=== PATIENT | female | born 1945 | race Caucasian/White ===

== ENCOUNTER → 2016-10-30 | Outpatient (CLI) | payer MEDICARE, BC ==
[2016-10-30 10:51] LABS: Basophils # (A) 0.1 k/uL (0-0.2); Basophils % (A) 1 %; CHCM 33.2; Eosinophils # (A) 0.1 k/uL (0-0.7); Eosinophils % (A) 2 %; HCT 50.2 % (34.0-46.0); HDW 2.66; Luc # (Auto) 0.11; Luc % (Auto) 2; Lymphocytes # (A) 1.9 k/uL (1.0-4.8); Lymphocytes % (A) 31 %; MCH 27.9 pg (25.0-35.0); MCHC 31.8 g/dL (31.0-37.0); MCV 87.9 fL (80.0-100.0); Mean Platelet Volume 8.9; Monocytes # (A) 0.4 k/uL (0-1.0); Monocytes % (A) 7 %; Neutrophils # (A) 3.7 k/uL (1.3-7.7); Neutrophils % (A) 58 %; RBC 5.71 m/uL (3.80-5.40); WBC 6.3 k/uL (3.8-10.6); WBC (Perox) 6.32
[2016-10-30 11:13] LABS: ALT 42 U/L (9-52); AST 20 U/L (14-36); Alkaline Phosphatase 79 U/L (38-126); Anion Gap 11 mmol/L; Blood Urea Nitrogen 20 mg/dL (7-17); Carbon Dioxide 26 mmol/L (22-30); Chloride 105 mmol/L (98-107); Cholesterol 165 mg/dL (<200); Glucose 152 mg/dL (74-99); HDL Cholesterol 65 mg/dL (40-60); Non-African American GFR(MDRD) >60 (>60 ml/min/1.73 sqM); Sodium 142 mmol/L (137-145); Total Bilirubin 1.2 mg/dL (0.2-1.3); Triglycerides 137 mg/dL (<150)
[2016-10-30 11:43] LABS: Hemoglobin A1C 6.4 % (4.2-6.1)
== END | disposition home or self-care (01) ==
LOC: LABWHC1 10:29
PROVIDERS: ATTEND Family Medicine
DX: E11.40 Type 2 diabetes mellitus with diabetic neuropathy, unspecified (principal); E78.5 Hyperlipidemia, unspecified; E03.9 Hypothyroidism, unspecified; Z85.850 Personal history of malignant neoplasm of thyroid
CPT/HCPCS: 36415; 80053; 80061; 83036; 84439; 84443; 84481; 85025; 86800

== ENCOUNTER → 2016-12-18 | Outpatient (CLI) | payer MEDICARE, BC ==
--- NOTE | 2016-12-18 11:40 | BD ---
EXAMINATION TYPE: MG DEXA axial skeleton. DATE OF EXAM: 12/18/2016 11:01 AM CLINICAL HISTORY: Height: 60 inches Weight: 194 FRAX RISK QUESTIONS: Alcohol (3 or more units per day): no Family History (Parent hip fracture): yes, mother Glucocorticoids (More than 3mos): no (Ex: prednisone, prednisolone, methylprednisolone, dexamethasone, and hydrocortisone). History of Fracture in Adulthood: no Secondary Osteoporosis: 1. Type 1 Diabetes: no 2. Hyperthyroidism: no 3. Menopause before 45: no 4. Malnutrition: no 5. Chronic liver disease: no Rheumatoid Arthritis: no Current Tobacco Use: no RISK FACTORS HISTORY OF: Family History of Osteoporosis: mother, maternal aunt Drink Alcohol: occasionally, occasionally Active: yes Diet low in dairy products/other sources of calcium: no Postmenopausal woman: yes Take estrogen and/or progesterone medications: no Lost more than 2 inches in height since high school: no, but almost 1 1/2 inches Frequent falls: no Poor Health: no Hyperthyroidism: no Hyperparathyroidism: no Adrenal Insufficiency: no MEDICATIONS: Prednisone or other steroids: no Thyroid Medications: yes Which medication: Synthroid How Long: since 1998 Osteoporosis Medications: no Additional Medications: blood pressure meds, cholesterol , multivitamin & Vitamin D; diabetes pills Additional History: Thyroid CA:thyroid removed; 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 Bone mineral density as measured about the Lumbar spine is: ----- L1-L4(G/cm2): 1.057 T Score Values are as follows: ----- L2: -0.8 ----- L3: -0.7 ----- L4: -1.0 ----- L1-L4: -1.0 Bone mineral density has: Decreased -0.5% since study of: 07/09/2013 Bone mineral density about the R hip (g/cm2): 0.790 Bone mineral density about the L hip (g/cm2): 0.811 T Score values are as follows: -----R Neck: -1.8 -----L Neck: -1.6 -----R Intertrochanter: -1.3 -----L Intertrochanter: -1.2 Bone mineral density has: Decreased -5.3% since study of: 07/09/2013 IMPRESSION: Normal (Values between +1 and -1 indicate normal bone mass) Lumbar Spine Osteopenia (T Score between -2.5 and -1 as noted by T score values Bilateral Hips There is slightly increased risk of fracture and the patient may be considered for treatment. Re-Screen 1-2 years. NOTE: T-SCORE=SD OF THE YOUNG ADULT MEAN.
--- NOTE | 2016-12-19 10:43 | MM ---
Reason for exam: screening (asymptomatic). Last mammogram was performed 1 year and 5 months ago. History: Patient is postmenopausal and history of other cancer. Taking unspecified hormones for 8 years beginning at age 53. Physical Findings: A clinical breast exam by your physician is recommended on an annual basis and results should be correlated with mammographic findings. MG 3D Screening Mammo W/Cad Bilateral CC and MLO view(s) were taken. Prior study comparison: July 19, 2015, bilateral MG screening mammo w CAD. July 22, 2014, bilateral MG screening mammo w CAD. July 09, 2013, bilateral digital screening mammo w/CAD. The breast tissue is heterogeneously dense. This may lower the sensitivity of mammography. Finding: There are typically benign dystrophic, round calcifications in both breasts. There is a chronic nodularity bilaterally. There is no discrete abnormality. ASSESSMENT: Benign, BI-RAD 2 RECOMMENDATION: Routine screening mammogram of both breasts in 1 year.
== END ==
LOC: RADMAMWWP 10:11
PROVIDERS: ATTEND Family Medicine
DX: Z12.31 Encounter for screening mammogram for malignant neoplasm of breast (principal); Z78.0 Asymptomatic menopausal state
CPT/HCPCS: 77080; 77063; G0202

== ENCOUNTER → 2017-02-13 | Outpatient (CLI) | payer MEDICARE, BC ==
[2017-02-13 09:39] LABS: ALT 32 U/L (9-52); AST 19 U/L (14-36); Alkaline Phosphatase 77 U/L (38-126); Anion Gap 10 mmol/L; Blood Urea Nitrogen 25 mg/dL (7-17); Calcium 9.7 mg/dL (8.4-10.2); Carbon Dioxide 27 mmol/L (22-30); Chloride 105 mmol/L (98-107); Glucose 141 mg/dL (74-99); Non-African American GFR(MDRD) >60 (>60 ml/min/1.73 sqM); Potassium 4.6 mmol/L (3.5-5.1); Sodium 142 mmol/L (137-145); Total Protein 7.3 g/dL (6.3-8.2)
[2017-02-13 09:55] LABS: Basophils % (A) 1 %; CH 29.4; CHCM 33.9; Eosinophils # (A) 0.1 k/uL (0-0.7); Eosinophils % (A) 2 %; HCT 48.5 % (34.0-46.0); HDW 2.73; HGB 16.2 gm/dL (11.4-16.0); Luc # (Auto) 0.14; Luc % (Auto) 2; Lymphocytes # (A) 1.9 k/uL (1.0-4.8); Lymphocytes % (A) 27 %; Mean Platelet Volume 8.6; Monocytes # (A) 0.4 k/uL (0-1.0); Monocytes % (A) 6 %; Neutrophils # (A) 4.3 k/uL (1.3-7.7); Neutrophils % (A) 62 %; RBC 5.57 m/uL (3.80-5.40); RDW 12.9 % (11.5-15.5)
[2017-02-13 09:57] LABS: MCHC 33.4 g/dL (31.0-37.0)
[2017-02-13 10:25] LABS: Hepatitis C Virus IgG Index 0.01
[2017-02-13 10:30] LABS: Hepatitis C Virus IgG Ab Negative (Negative)
== END | disposition home or self-care (01) ==
LOC: LABWHC1 08:49
PROVIDERS: ATTEND Family Medicine
DX: E78.5 Hyperlipidemia, unspecified (principal); E11.40 Type 2 diabetes mellitus with diabetic neuropathy, unspecified; E03.9 Hypothyroidism, unspecified; E55.9 Vitamin D deficiency, unspecified; Z20.9 Contact with and (suspected) exposure to unspecified communicable disease
CPT/HCPCS: 36415; 80053; 82306; 84439; 84443; 84481; 85025; 86803

== ENCOUNTER 2017-06-05 00:05 | Emergency (ER) | payer MEDICARE, BC ==
[2017-06-05 00:11] VITALS: RESP 18
[2017-06-05] MEDS ORDERED: MORPHINE SULFATE 4 MG/ML SYRINGE IV STA (00:31)
[2017-06-05] MEDS ORDERED: SODIUM CHLORIDE 0.9% 1,000 ML IV STA (00:31)
[2017-06-05] MEDS ORDERED: ONDANSETRON 4 MG/2 ML VIAL IVP STA (00:31)
[2017-06-05] MEDS ORDERED: FAMOTIDINE 20 MG/2 ML VIAL IV STA (00:32)
--- NOTE | 2017-06-05 00:35 | ED ---
General Adult HPI - General Source: patient, family, RN notes reviewed Mode of arrival: ambulatory Limitations: no limitations <Mitch Brand - Last Filed: 06/05/17 00:33> <Alberto De Leon - Last Filed: 06/05/17 02:12> - General Chief complaint: Abdominal Pain Stated complaint: abd pain, vomiting Time Seen by Provider: 06/05/17 00:26 - History of Present Illness Initial comments: Patient is a pleasant 71-year-old female presenting to the emergency department complaining of abdominal discomfort. Patient did bleed a pot roast with gravy which is not something she normally eats. Patient states following this she started having upper abdominal discomfort. Patient has had nausea and vomiting that just started an hour ago. No constipation or diarrhea. No dysuria or hematuria. No history of similar symptoms previously. No radiation of pain ( Mitch Brand) - Related Data Home Medications Medication Instructions Recorded Confirmed ALPRAZolam [Xanax] 0.5 mg PO TID PRN 05/22/14 06/05/17 Atorvastatin [Lipitor] 20 mg PO DAILY 05/22/14 06/05/17 Glimepiride [Amaryl] 2 mg PO [id number] 05/22/14 06/05/17 Levothyroxine Sodium [Synthroid] 175 mcg PO DAILY 05/22/14 06/05/17 Liothyronine Sodium [Cytomel] 5 mcg PO DAILY 05/22/14 06/05/17 Lisinopril [Zestril] 20 mg PO BID 05/22/14 06/05/17 Ranitidine HCl [Zantac] 150 mg PO BID PRN 05/22/14 06/05/17 amLODIPine BESYLATE [Norvasc] 5 mg PO DAILY 05/22/14 06/05/17 metFORMIN HCL [Glucophage] 500 mg PO BID 05/22/14 06/05/17 Allergies Allergy/AdvReac Type Severity Reaction Status Date / Time No Known Allergies Allergy Verified 06/05/17 00:11 Review of Systems ROS Other: All systems not noted in ROS Statement are negative. Constitutional: Denies: fever Eyes: Denies: eye pain ENT: Denies: ear pain Respiratory: Denies: cough Cardiovascular: Denies: chest pain Endocrine: Denies: fatigue Gastrointestinal: Reports: abdominal pain, nausea, vomiting. Denies: diarrhea, constipation Genitourinary: Denies: dysuria Musculoskeletal: Denies: back pain Skin: Denies: rash Neurological: Denies: weakness <Mitch Brand - Last Filed: 06/05/17 00:33> ROS Other: All systems not noted in ROS Statement are negative. <Alberto De Leon - Last Filed: 06/05/17 02:12> ROS Statement: Those systems with pertinent positive or pertinent negative responses have been documented in the HPI. Past Medical History Past Medical History: Blood Disorder, Cancer, Diabetes Mellitus, GERD/Reflux, Hypertension, Pneumonia Additional Past Medical History / Comment(s): Thyroid cancer 1998, radioactive pill. Does have heart 'flutters', unknown if atrial. History of Any Multi-Drug Resistant Organisms: None Reported Past Surgical History: Section, Orthopedic Surgery, Tubal Ligation Additional Past Surgical History / Comment(s): Thyroidectomy for CA 1998; Lt knee arthroscopy, bilateral carpal tunnel procedures. Past Anesthesia/Blood Transfusion Reactions: No Reported Reaction Past Psychological History: No Psychological Hx Reported Smoking Status: Never smoker Past Alcohol Use History: None Reported Past Drug Use History: None Reported <Mitch Brand - Last Filed: 06/05/17 00:33> General Exam Limitations: no limitations General appearance: alert, in no apparent distress Head exam: Present: atraumatic Eye exam: Present: normal appearance, PERRL ENT exam: Present: normal oropharynx Neck exam: Present: normal inspection Respiratory exam: Present: normal lung sounds bilaterally Cardiovascular Exam: Present: regular rate, normal rhythm Expanded Peripheral pulses: 2+: Radial (R), Radial (L), Dorsalis Pedis (R), Dorsalis Pedis (L) GI/Abdominal exam: Present: soft, tenderness (Moderate right upper quadrant tenderness to palpation, mild epigastric and left upper quadrant tenderness), normal bowel sounds. Absent: distended, guarding, rebound, rigid, pulsatile mass Extremities exam: Present: normal inspection. Absent: pedal edema, calf tenderness Neurological exam: Present: alert Psychiatric exam: Present: normal affect, normal mood Skin exam: Present: normal color <Mitch Brand Last Filed: 06/05/17 00:33> Medical Decision Making <Mitch Brand Last Filed: 06/05/17 00:33> - Lab Data Result diagrams: 06/05/17 00:43 06/05/17 00:43 <Alberto De Leon - Last Filed: 06/05/17 02:12> - Medical Decision Making 71-year-old female with abdominal pain. Patient was signed out from Dr. Brand awaiting ultrasound and laboratory studies. I did reevaluate the patient at the time sign out. She was comfortable, no nausea vomiting while in the emergency department. She did report severe upper abdominal pain with several episodes of vomiting. Pain is currently resolved. Laboratory studies including CBC, CMP, cardiac enzymes show only mild elevation white count which is likely reactive. Abdominal x-ray shows no free air, no signs of obstruction. Ultrasound of the gallbladder is negative for cholelithiasis, or cholecystitis. I did discuss these results with the patient. She is completely asymptomatic. Vital signs are stable. She'll be discharged home with instructions to return with worsening abdominal pain or vomiting. Follow-up with primary care physician. (Alberto De Leon) - Lab Data Lab Results 06/05/17 06/05/17 06/05/17 Range/Units 00:43 00:43 00:43 WBC 13.4 H (3.8-10.6) k/uL RBC 5.42 H (3.80-5.40) m/uL Hgb 15.4 (11.4-16.0) gm/dL Hct 46.7 H (34.0-46.0) % MCV 86.1 (80.0-100.0) fL MCH 28.4 (25.0-35.0) pg MCHC 33.0 (31.0-37.0) g/dL RDW 13.8 (11.5-15.5) % Plt Count 185 (150-450) k/uL Neutrophils % 83 % Lymphocytes % 11 % Monocytes % 4 % Eosinophils % 1 % Basophils % 1 % Neutrophils # 11.1 H (1.3-7.7) k/uL Lymphocytes # 1.4 (1.0-4.8) k/uL Monocytes # 0.6 (0-1.0) k/uL Eosinophils # 0.1 (0-0.7) k/uL Basophils # 0.1 (0-0.2) k/uL PT (9.0-12.0) sec INR (<1.2) APTT (22.0-30.0) sec Sodium 140 (137-145) mmol/L Potassium 4.0 (3.5-5.1) mmol/L Chloride 104 (98-107) mmol/L Carbon Dioxide 25 (22-30) mmol/L Anion Gap 11 mmol/L BUN 29 H (7-17) mg/dL Creatinine 1.00 (0.52-1.04) mg/dL Est GFR (MDRD) Af Amer >60 (>60 ml/min/1.73 sqM) Est GFR (MDRD) Non-Af 55 (>60 ml/min/1.73 sqM) Glucose 127 H (74-99) mg/dL Calcium 9.8 (8.4-10.2) mg/dL Total Bilirubin 1.1 (0.2-1.3) mg/dL AST 21 (14-36) U/L ALT 42 (9-52) U/L Alkaline Phosphatase 98 (38-126) U/L Total Creatine Kinase 41 (30-135) U/L CK-MB (CK-2) 0.3 (0.0-2.4) ng/mL CK-MB (CK-2) Rel Index 0.7 Troponin I <0.012 (0.000-0.034) ng/mL Total Protein 6.6 (6.3-8.2) g/dL Albumin 4.1 (3.5-5.0) g/dL Amylase 41 (30-110) U/L Lipase 92 (23-300) U/L 06/05/17 Range/Units 00:43 WBC (3.8-10.6) k/uL RBC (3.80-5.40) m/uL Hgb (11.4-16.0) gm/dL Hct (34.0-46.0) % MCV (80.0-100.0) fL MCH (25.0-35.0) pg MCHC (31.0-37.0) g/dL RDW (11.5-15.5) % Plt Count (150-450) k/uL Neutrophils % % Lymphocytes % % Monocytes % % Eosinophils % % Basophils % % Neutrophils # (1.3-7.7) k/uL Lymphocytes # (1.0-4.8) k/uL Monocytes # (0-1.0) k/uL Eosinophils # (0-0.7) k/uL Basophils # (0-0.2) k/uL PT 10.8 (9.0-12.0) sec INR 1.1 (<1.2) APTT 22.7 (22.0-30.0) sec Sodium (137-145) mmol/L Potassium (3.5-5.1) mmol/L Chloride (98-107) mmol/L Carbon Dioxide (22-30) mmol/L Anion Gap mmol/L BUN (7-17) mg/dL Creatinine (0.52-1.04) mg/dL Est GFR (MDRD) Af Amer (>60 ml/min/1.73 sqM) Est GFR (MDRD) Non-Af (>60 ml/min/1.73 sqM) Glucose (74-99) mg/dL Calcium (8.4-10.2) mg/dL Total Bilirubin (0.2-1.3) mg/dL AST (14-36) U/L ALT (9-52) U/L Alkaline Phosphatase (38-126) U/L Total Creatine Kinase (30-135) U/L CK-MB (CK-2) (0.0-2.4) ng/mL CK-MB (CK-2) Rel Index Troponin I (0.000-0.034) ng/mL Total Protein (6.3-8.2) g/dL Albumin (3.5-5.0) g/dL Amylase (30-110) U/L Lipase (23-300) U/L Disposition <Mitch Brand - Last Filed: 06/05/17 00:33> Time of Disposition: 02:12 <Alberto De Leon - Last Filed: 06/05/17 02:12> Clinical Impression: Abdominal pain Disposition: HOME SELF-CARE Condition: Good Instructions: Abdominal Pain (ED) Referrals: Marlo Lewis MD [Primary Care Provider] - 1-2 days
[2017-06-05 00:50] LABS: Basophils # (A) 0.1 k/uL (0-0.2); Basophils % (A) 1 %; CH 29.8; CHCM 34.7; Eosinophils # (A) 0.1 k/uL (0-0.7); Eosinophils % (A) 1 %; HCT 46.7 % (34.0-46.0); HDW 2.72; HGB 15.4 gm/dL (11.4-16.0); Luc # (Auto) 0.13; Luc % (Auto) 1; Lymphocytes # (A) 1.4 k/uL (1.0-4.8); Lymphocytes % (A) 11 %; MCH 28.4 pg (25.0-35.0); MCV 86.1 fL (80.0-100.0); Mean Platelet Volume 8.6; Monocytes # (A) 0.6 k/uL (0-1.0); Monocytes % (A) 4 %; Neutrophils # (A) 11.1 k/uL (1.3-7.7); Neutrophils % (A) 83 %; RBC 5.42 m/uL (3.80-5.40); RDW 13.8 % (11.5-15.5); WBC 13.4 k/uL (3.8-10.6); WBC (Perox) 12.24
[2017-06-05 00:58] LABS: INR 1.1 (<1.2); Partial Thromboplastin Time 22.7 sec (22.0-30.0); Prothrombin Time 10.8 sec (9.0-12.0)
[2017-06-05 00:59] LABS: ALT 42 U/L (9-52); AST 21 U/L (14-36); Alkaline Phosphatase 98 U/L (38-126); Amylase 41 U/L (30-110); Anion Gap 11 mmol/L; Blood Urea Nitrogen 29 mg/dL (7-17); Calcium 9.8 mg/dL (8.4-10.2); Carbon Dioxide 25 mmol/L (22-30); Chloride 104 mmol/L (98-107); Glucose 127 mg/dL (74-99); Non-African American GFR(MDRD) 55 (>60 ml/min/1.73 sqM); Sodium 140 mmol/L (137-145); Total Bilirubin 1.1 mg/dL (0.2-1.3); Total Protein 6.6 g/dL (6.3-8.2)
[2017-06-05 01:13] LABS: Creatine Kinase 41 U/L (30-135)
--- NOTE | 2017-06-05 01:23 | US ---
EXAM: US Abdomen Limited, Right Upper Quadrant CLINICAL HISTORY: Reason: Pain TECHNIQUE: Real-time ultrasound of the right upper quadrant with image documentation. COMPARISON: No relevant prior studies available. FINDINGS: Liver: Unremarkable. No mass. No intrahepatic bile duct dilation. Gallbladder: Unremarkable. No gallstones. Common bile duct: Common duct is 5 mm in diameter. No stones. No dilation. Pancreas: Pancreatic tail is obscured by bowel gas. Right kidney: Simple cyst in the upper pole of the right kidney measuring 1.6 cm. Simple cyst in the lower pole of the right kidney also measuring 1.6 cm. No stones. No hydronephrosis. IMPRESSION: No acute findings.
[2017-06-05 01:25] LABS: Creatine Kinase MB 0.3 ng/mL (0.0-2.4); Troponin I <0.012 ng/mL (0.000-0.034)
--- NOTE | 2017-06-05 01:30 | XR ---
EXAM: XR KUB, 1 View CLINICAL HISTORY: Reason: abdominal pain TECHNIQUE: Frontal supine view of the abdomen/pelvis. COMPARISON: No relevant prior studies available. FINDINGS: Gastrointestinal tract: Nonobstructive bowel gas pattern. Organs: No organomegaly or soft tissue mass. Bones/joints: Osseous structures are intact. Other findings: No abnormal calcifications. IMPRESSION: No acute findings.
[2017-06-05 02:25] LABS: Appearance,Urine Clear (Clear); Bilirubin,Urine Negative (Negative); Glucose,Urine (UA) Negative (Negative); Ketones,Urine 2+ (Negative); Leukocyte Esterase,Urine Negative (Negative); Nitrite,Urine Negative (Negative); Protein,Urine Negative (Negative); Specific Gravity,Urine 1.016 (1.001-1.035); UA Billing (MACRO vs. MICRO) CHEM; Urobilinogen,Urine <2.0 mg/dL (<2.0)
[2017-06-05 03:04] VITALS: BP 126/63; PULSE 78; TEMP 98.5
== END 2017-06-05 03:06 | disposition home or self-care (01) ==
LOC: EC 00:05
DX: R10.10 Upper abdominal pain, unspecified (principal); R11.2 Nausea with vomiting, unspecified; D72.829 Elevated white blood cell count, unspecified; I10 Essential (primary) hypertension; E11.9 Type 2 diabetes mellitus without complications; E89.0 Postprocedural hypothyroidism; Z79.84 Long term (current) use of oral hypoglycemic drugs; Z79.899 Other long term (current) drug therapy; Z85.850 Personal history of malignant neoplasm of thyroid
CPT/HCPCS: 36415; 80053; 82150; 82550; 82553; 83690; 84484; 85025; 85610; 85730; 81003; 74000; 76705; 99284; 96374; 96375 ×2; 96361 ×2; J2270; J2405

== ENCOUNTER → 2018-05-16 | Outpatient (CLI) | payer MEDICARE, BC ==
--- NOTE | 2018-05-17 09:19 | MM ---
Reason for exam: screening (asymptomatic). Last mammogram was performed 1 year and 5 months ago. History: Patient is postmenopausal and history of other cancer. Taking unspecified hormones for 8 years beginning at age 53. Physical Findings: A clinical breast exam by your physician is recommended on an annual basis and results should be correlated with mammographic findings. MG 3D Screening Mammo W/Cad Bilateral CC and MLO view(s) were taken. Prior study comparison: December 18, 2016, bilateral MG 3d screening mammo w/cad. July 19, 2015, bilateral MG screening mammo w CAD. The breast tissue is heterogeneously dense. This may lower the sensitivity of mammography. Finding: There is a typically benign circumscribed round oval masses waxing and waning over priors: most mammographically compatible with cysts. There are benign appearing bilateral calcifications. No suspicious abnormality. No significant changes in finding since December 18, 2016 and July 19, 2015. ASSESSMENT: Benign, BI-RAD 2 RECOMMENDATION: Routine screening mammogram of both breasts in 1 year.
== END | disposition home or self-care (01) ==
LOC: RADMAMWWP 13:17
PROVIDERS: ATTEND Family Medicine
DX: Z12.31 Encounter for screening mammogram for malignant neoplasm of breast (principal)
CPT/HCPCS: 77063; 77067

== ENCOUNTER 2019-01-03 14:48 | Observation (INO) | payer MEDICARE, BC ==
[2019-01-03] MEDS ORDERED: NITROGLYCERIN OINT 1 INCH/GM PACKET TOPICAL STA (15:47)
[2019-01-03] MEDS ORDERED: SODIUM CHLORIDE 0.9% 1,000 ML IV STA (15:47)
--- NOTE | 2019-01-03 15:58 | ED ---
Chest Pain HPI - General Chief Complaint: Chest Pain Stated Complaint: Back of arm pain-Dr henao sent Time Seen by Provider: 01/03/19 15:30 Source: patient, RN/MD, RN notes reviewed, old records reviewed Mode of arrival: wheelchair Limitations: no limitations - History of Present Illness Initial Comments: This is a 73-year-old female with no prior history of heart or lung disease was never a smoker who presents with complaints of intermittent chest pain has been going on for about a week. Last night it lasted 2 or 3 hours. She saw her family doctor today she is complaints of pain she states it went away from a 5/10 to almost 0 after aspirin and nitroglycerin in the office. She was sent here for further evaluation she states right now the pain is about 1-2/10 he can't describe it any differently than just the pain she states is associated with nausea no sweats no palpitations no other symptoms. She states radiates to her left arm and scapular area. EKG done in the office appears be nondiagnostic. No other modifying factors at this time. MD Complaint: chest pain - Related Data Home Medications Medication Instructions Recorded Confirmed Atorvastatin [Lipitor] 20 mg PO DAILY 05/22/14 01/03/19 Liothyronine Sodium [Cytomel] 5 mcg PO DAILY 05/22/14 01/03/19 Lisinopril [Zestril] 20 mg PO BID 05/22/14 01/03/19 Cholecalciferol [Vitamin D3] 1,000 unit PO DAILY 01/03/19 01/03/19 Cyanocobalamin (Vitamin B-12) 1,000 mcg PO DAILY 01/03/19 01/03/19 [Vitamin B-12] Levothyroxine Sodium [Synthroid] 150 mcg PO DAILY 01/03/19 01/03/19 amLODIPine [Norvasc] 10 mg PO DAILY 01/03/19 01/03/19 metFORMIN HCL [Glucophage] 1,000 mg PO BID 01/03/19 01/03/19 metFORMIN HCL [Glucophage] 500 mg PO DAILY 01/03/19 01/03/19 Allergies Allergy/AdvReac Type Severity Reaction Status Date / Time No Known Allergies Allergy Verified 01/03/19 16:26 Review of Systems ROS Statement: Those systems with pertinent positive or pertinent negative responses have been documented in the HPI. ROS Other: All systems not noted in ROS Statement are negative. EKG Findings - EKG Results: EKG: interpreted by AMADAD, sinus rhythm (Sinus rhythm with PACs ventricular rate 66. Interval 154 QRS 70 QT since QTC 400/[address] configuration) Past Medical History Past Medical History: Blood Disorder, Cancer, Diabetes Mellitus, GERD/Reflux, Hypertension, Pneumonia Additional Past Medical History / Comment(s): Thyroid cancer 1998, radioactive pill. Does have heart 'flutters', unknown if atrial. History of Any Multi-Drug Resistant Organisms: None Reported Past Surgical History: Section, Orthopedic Surgery, Tubal Ligation Additional Past Surgical History / Comment(s): Thyroidectomy for CA 1998; Lt knee arthroscopy, bilateral carpal tunnel procedures. Past Anesthesia/Blood Transfusion Reactions: No Reported Reaction Past Psychological History: No Psychological Hx Reported Smoking Status: Never smoker Past Alcohol Use History: None Reported Past Drug Use History: None Reported General Exam - General Exam Comments Initial Comments: This is a well-developed well-nourished awake alert oriented 3 female Limitations: no limitations General appearance: alert, in no apparent distress Head exam: Present: atraumatic, normocephalic, normal inspection Eye exam: Present: normal appearance, PERRL, EOMI. Absent: scleral icterus, conjunctival injection, periorbital swelling ENT exam: Present: normal exam, mucous membranes moist Neck exam: Present: normal inspection, full ROM, other (No stridor JVD or bruits). Absent: tenderness, meningismus, lymphadenopathy Respiratory exam: Present: normal lung sounds bilaterally. Absent: respiratory distress, wheezes, rales, rhonchi, stridor Cardiovascular Exam: Present: regular rate, normal rhythm, normal heart sounds. Absent: systolic murmur, diastolic murmur, rubs, gallop, clicks GI/Abdominal exam: Present: soft, normal bowel sounds. Absent: distended, tenderness, guarding, rebound, rigid Extremities exam: Present: normal inspection, full ROM, normal capillary refill. Absent: tenderness, pedal edema, joint swelling, calf tenderness Back exam: Present: normal inspection Neurological exam: Present: alert, oriented X3, CN II-XII intact Psychiatric exam: Present: normal affect, normal mood Skin exam: Present: warm, dry, intact, normal color. Absent: rash Course Vital Signs 01/03/19 01/03/19 01/03/19 14:54 15:07 15:10 Temperature 97.6 F Pulse Rate 68 Respiratory 16 Rate Blood Pressure 153/89 O2 Sat by Pulse 98 95 95 Oximetry 01/03/19 15:20 Temperature Pulse Rate 71 Respiratory Rate Blood Pressure 144/83 O2 Sat by Pulse 95 Oximetry - Reevaluation(s) Reevaluation #1: 01/03/19 17:09 Reevaluation patient reveals she still complains of low-grade discomfort about 1/10 in severity further breath nausea vomiting sweats or other symptoms at this time. Chest Pain MDM - MDM I did review the imaging and report no acute findings. I did discuss findings with the patient and her . The symptoms are suspicious for acute coronary syndrome/unstable angina initial workup is unremarkable at this time. Patient will be admitted for further evaluation and cardiology consultation. Patient will be placed on heparin as well as continue with the nitro paste. Critical Care Time Critical Care Time: Yes Critical Care Time: Critical care time: Patient was reevaluated several occasions the patient does present with complaints of chest pain it is suspicious for acute coronary syndrome. I did discuss findings with the patient family and with Dr. tyson. Patient will be admitted 31 minutes of total time. Disposition Clinical Impression: Unstable angina pectoris, Acute coronary syndrome Disposition: ADMITTED IP TO THIS HOSP Condition: Fair Referrals: Marlo Henao MD [Primary Care Provider] - 1-2 days
[2019-01-03 16:00] LABS: Basophils % (A) 0 %; Eosinophils # (A) 0.3 k/uL (0-0.7); Eosinophils % (A) 3 %; HGB 14.7 gm/dL (11.4-16.0); Lymphocytes # (A) 2.5 k/uL (1.0-4.8); Lymphocytes % (A) 27 %; MCH 27.4 pg (25.0-35.0); MCHC 31.9 g/dL (31.0-37.0); MCV 85.9 fL (80.0-100.0); Mean Platelet Volume 8.3; Monocytes # (A) 0.5 k/uL (0-1.0); Monocytes % (A) 6 %; Neutrophils # (A) 5.7 k/uL (1.3-7.7); Neutrophils % (A) 62 %; Platelet Count 198 k/uL (150-450); RBC 5.36 m/uL (3.80-5.40); RDW 13.6 % (11.5-15.5); WBC 9.3 k/uL (3.8-10.6)
--- NOTE | 2019-01-03 16:02 | XR ---
EXAMINATION TYPE: XR chest 2V DATE OF EXAM: 01/03/2019 COMPARISON: 06/30/2015 HISTORY: Shortness of breath TECHNIQUE: Frontal and lateral views of the chest are obtained. FINDINGS: Scattered senescent parenchymal changes noted. Hyperinflation compatible with COPD. No evidence for infiltrate. No evidence for atelectasis. Heart size is stable. Mediastinal structures are stable and grossly unremarkable. No evidence for hilar prominence. Degenerative changes dorsal spine. IMPRESSION: 1. No evidence for acute pulmonary disease.
[2019-01-03 16:10] LABS: ALT 37 U/L (9-52); AST 19 U/L (14-36); Albumin 4.1 g/dL (3.5-5.0); Alkaline Phosphatase 88 U/L (38-126); Amylase 47 U/L (30-110); Anion Gap 9 mmol/L; Blood Urea Nitrogen 23 mg/dL (7-17); Calcium 9.9 mg/dL (8.4-10.2); Carbon Dioxide 27 mmol/L (22-30); Chloride 104 mmol/L (98-107); Creatine Kinase 27 U/L (30-135); Glucose 133 mg/dL (74-99); Lipase 92 U/L (23-300); Magnesium 1.5 mg/dL (1.6-2.3); Potassium 4.4 mmol/L (3.5-5.1); Sodium 140 mmol/L (137-145); Total Bilirubin 0.9 mg/dL (0.2-1.3); Total Protein 6.6 g/dL (6.3-8.2)
[2019-01-03 16:25] LABS: D-Dimer 0.44 mg/L FEU (<0.60); Partial Thromboplastin Time 22.8 sec (22.0-30.0); Prothrombin Time 10.5 sec (9.0-12.0)
[2019-01-03] MEDS ORDERED: HEPARIN SODIUM,PORCINE 5,000 UNIT/ML 1 ML VIAL IV ONE (17:13)
[2019-01-03] MEDS ORDERED: SODIUM CHLORIDE 0.9% 1,000 ML IV SCH (17:15)
[2019-01-03] MEDS ORDERED: HEPARIN SOD,PORK IN 0.45% NACL 25,000 UNIT in 0.45% NACL 1 250ML.BAG IV SCH (17:15)
[2019-01-03] MEDS ORDERED: ACETAMINOPHEN TAB 500 MG TAB PO STA (20:30)
[2019-01-03] MEDS: INSULIN ASPART (NovoLOG) 100 UNIT/ML VIAL SQ SCH ×2 (21:04→21:35)
[2019-01-03 21:15] VITALS: BMI 34.0
[2019-01-03 21:33] LABS: Glucose,Whole Blood 142 mg/dL (75-99)
[2019-01-03] MEDS: LISINOPRIL 20 MG TAB PO SCH (21:35)
[2019-01-04] MEDS: NITROGLYCERIN OINT 1 INCH/GM PACKET TOPICAL SCH ×2 (00:19→05:39)
[2019-01-04] MEDS ORDERED: HEPARIN SODIUM,PORCINE 5,000 UNIT/ML 1 ML VIAL IV ONE (03:12)
[2019-01-04 03:27] LABS: Cholesterol 134 mg/dL (<200); HDL Cholesterol 54 mg/dL (40-60); LDL Cholesterol,Calculated 37 mg/dL (0-99); Triglycerides 215 mg/dL (<150)
[2019-01-04] MEDS: LEVOTHYROXINE 75 MCG TAB PO SCH (05:38)
[2019-01-04 06:46] LABS: Glucose,Whole Blood 157 mg/dL (75-99)
[2019-01-04] MEDS: CYANOCOBALAMIN 500 MCG TAB PO SCH (09:33)
[2019-01-04] MEDS: ATORVASTATIN 20 MG TAB PO SCH ×2 (09:33→15:06)
[2019-01-04] MEDS: LISINOPRIL 20 MG TAB PO SCH ×2 (09:33→20:39)
[2019-01-04] MEDS: ASPIRIN 325 MG TAB PO SCH ×2 (09:33→15:06)
[2019-01-04] MEDS: amLODIPine 10 MG TAB PO SCH (09:33)
[2019-01-04] MEDS: CHOLECALCIFEROL 1,000 UNIT TAB PO SCH (09:33)
[2019-01-04] MEDS: metFORMIN 500 MG TAB PO SCH ×3 (09:34→11:00)
[2019-01-04] MEDS: INSULIN ASPART (NovoLOG) 100 UNIT/ML VIAL SQ SCH ×4 (09:34→20:40)
--- NOTE | 2019-01-04 10:29 | P.CRDCN ---
History of Present Illness History of present illness: This is a pleasant 73-year-old female past medical history significant for diabetes mellitus, dyslipidemia and hypertension. She denies history of coronary artery disease. We've been asked to see her in consultation for chest discomfort. She states for the previous week she has had a pressure heavy sensation in the back in the mid scapular region radiates down the left arm at times not associated with shortness of breath, dizziness, nausea, vomiting or diaphoresis. She also denies any symptoms of palpitations, PND orthopnea. The pain has been very intermittent with no specific aggravating or alleviating factors. Yesterday it was persistent all day despite taking Tylenol and [id number]-[id number] remedies. EKG reveals sinus mechanism with nonspecific ST abnormalities noted in no acute changes. Chest x-ray is negative for acute cardiopulmonary process. Laboratory data reviewed, cardiac enzymes negative 3. Current cardiac medications include atorvastatin 20 mg daily, lisinopril 20 mg twice a day, amlodipine 10 mg daily. At the time of my exam: CONSTITUTIONAL: Denies fever. Denies chills. EYES: Denies blurred vision. Denies vision changes. Denies eye pain. EARS, NOSE, MOUTH & THROAT: Denies headache. Denies sore throat. Denies ear pain. CARDIOVASCULAR: Denies chest pain. Denies shortness of breath. Denies orthopnea. Denies PND. Denies palpitations. RESPIRATORY: Denies cough. GASTROINTESTINAL: Denies abdominal pain. Denies diarrhea. Denies constipation. D enies nausea. Denies vomiting. MUSCULOSKELETAL: Denies myalgias. INTEGUMENTARY: Denies pruitis. Denies rash. NEUROLOGIC: Denies numbness. Denies tingling. Denies weakness. PSYCHIATRIC: Denies anxiety. Denies depression. ENDOCRINE: Denies fatigue. Denies weight change. Denies polydipsia. Denies polyu isabelle. GENITOURINARY: Denies burning, hematuria or urgency with micturation. HEMATOLOGIC: Denies history of anemia. Denies bleeding. Blood pressure 118/68 heart rate 72 afebrile maintaining oxygen saturation on room air GENERAL: This is a 73-year-old female in no apparent distress at the time of my examination. HEENT: Head is atraumatic, normocephalic. Pupils are equal, round. Sclerae a nicteric. Conjunctivae are clear. Mucous membranes of the mouth are moist. Neck is supple. There is no jugular venous distention. No carotid bruit is heard. LUNGS: Clear to auscultation no wheezes, rales or rhonchi. No chest wall tenderness is noted on palpation or with deep breathing. HEART: Regular rate and rhythm without murmurs, rubs or gallops. S1 and S2 heard. ABDOMEN: Soft, nontender. Bowel sounds are heard. No organomegaly noted. EXTREMITIES: No evidence of peripheral edema and no calf tenderness noted. VASCULAR: Radial and dorsalis pedis pulses palpated, no evidence of clubbing. NEUROLOGIC: Patient is awake, alert and oriented x3. ASSESSMENT Chest pain, atypical for angina. An acute coronary event has been ruled out. Hypertension Dyslipidemia Diabetes mellitus PLAN An acute coronary event has been ruled out with no EKG evidence of ischemia negative cardiac enzymes. Obtain 2-D echocardiogram and Doppler study to assess cardiac structure and function. Discontinue heparin infusion. We have asked the patient to increase her activity and ambulation in the rice. If she has any further symptoms of chest discomfort we will consider coronary angiography to further assess for coronary artery disease. Further recommendations to follow based upon clinical course. Thank you kindly for this consultation. Nurse Practitioner note has been reviewed, I agree with a documented findings and plan of care. Patient was seen and examined. Past Medical History Past Medical History: Blood Disorder, Cancer, Diabetes Mellitus, GERD/Reflux, Hy pertension, Pneumonia Additional Past Medical History / Comment(s): Thyroid cancer 1998, radioactive pill. Does have heart 'flutters', unknown if atrial. History of Any Multi-Drug Resistant Organisms: None Reported Past Surgical History: Section, Orthopedic Surgery, Tubal Ligation Additional Past Surgical History / Comment(s): Thyroidectomy for CA 1998; Lt knee arthroscopy, bilateral carpal tunnel procedures. Past Anesthesia/Blood Transfusion Reactions: No Reported Reaction Past Psychological History: No Psychological Hx Reported Smoking Status: Never smoker Past Alcohol Use History: None Reported Past Drug Use History: None Reported Medications and Allergies Home Medications Medication Instructions Recorded Confirmed Type Atorvastatin [Lipitor] 20 mg PO DAILY 05/22/14 01/03/19 History Liothyronine Sodium [Cytomel] 5 mcg PO DAILY 05/22/14 01/03/19 History Lisinopril [Zestril] 20 mg PO BID 05/22/14 01/03/19 History Cholecalciferol [Vitamin D3] 1,000 unit PO DAILY 01/03/19 01/03/19 History Cyanocobalamin (Vitamin B-12) 1,000 mcg PO DAILY 01/03/19 01/03/19 History [Vitamin B-12] Levothyroxine Sodium [Synthroid] 150 mcg PO DAILY 01/03/19 01/03/19 History amLODIPine [Norvasc] 10 mg PO DAILY 01/03/19 01/03/19 History metFORMIN HCL [Glucophage] 1,000 mg PO BID 01/03/19 01/03/19 History metFORMIN HCL [Glucophage] 500 mg PO DAILY 01/03/19 01/03/19 History Allergies Allergy/AdvReac Type Severity Reaction Status Date / Time No Known Allergies Allergy Verified 01/03/19 16:26 Physical Exam Vitals: Vital Signs Temp Pulse Pulse Resp BP BP Pulse Ox 01/04/19 03:29 72 16 01/04/19 03:26 98.3 F 72 16 118/68 95 01/03/19 23:45 76 16 01/03/19 23:35 98.2 F 76 16 109/58 98 01/03/19 20:57 97.7 F 70 18 159/79 96 01/03/19 20:43 98.0 F 138/78 01/03/19 20:40 77 01/03/19 20:30 71 94 L 01/03/19 20:20 74 14 93 L 01/03/19 20:10 77 95 01/03/19 19:30 108/70 01/03/19 19:20 78 14 108/70 96 01/03/19 19:10 77 99/65 01/03/19 19:00 82 110/60 93 L 01/03/19 18:50 75 110/60 92 L 01/03/19 18:40 77 99/66 94 L 01/03/19 18:30 79 122/63 01/03/19 18:20 78 122/63 94 L 01/03/19 18:10 79 116/61 96 01/03/19 18:00 76 124/95 94 L 01/03/19 17:50 77 124/95 95 01/03/19 17:40 67 01/03/19 17:30 85 122/70 03/22/19 17:20 122/70 01/03/19 17:10 75 116/70 92 L 01/03/19 17:00 72 123/69 94 L 01/03/19 16:50 75 123/69 93 L 01/03/19 16:40 75 132/63 92 L 01/03/19 16:30 71 135/70 95 01/03/19 16:20 70 14 135/70 94 L 01/03/19 16:10 73 14 150/80 94 L 01/03/19 16:00 150/75 01/03/19 15:50 74 14 150/75 96 01/03/19 15:40 75 134/74 95 01/03/19 15:30 69 14 144/83 95 01/03/19 15:20 71 144/83 95 01/03/19 15:10 95 01/03/19 15:07 95 01/03/19 14:54 97.6 F 68 16 153/89 98 Intake and Output 01/03/19 01/04/19 01/04/19 22:59 06:59 14:59 Intake Total 460 664.224 52 Balance 460 664.224 52 Intake: Amount of Fluid Infused ( 60 ml) Intake, IV Titration 214.224 52 Amount Heparin Sod,Pork in 0.45% 94.224 52 NaCl 25,000 unit In 0.45 % NaCl 1 250ml.bag @ 12 UNITS/KG/HR 9.798 mls/hr IV .Q24H [facility] Rx#: [id number] Sodium Chloride 0.9% 1, 120 000 ml @ 20 mls/hr IV . Q24H [facility] Rx#:[id number] Oral 400 450 Other: Voiding Method Toilet # Voids 3 Results 01/03/19 15:16 01/03/19 15:16 Cardiac Enzymes 01/03/19 01/03/19 01/03/19 Range/Units 15:16 15:16 20:23 AST 19 (14-36) U/L Troponin I <0.012 <0.012 (0.000-0.034) ng/mL 01/04/19 Range/Units 02:42 AST (14-36) U/L Troponin I <0.012 (0.000-0.034) ng/mL Coagulation 01/03/19 01/04/19 01/04/19 Range/Units 15:16 00:05 06:20 PT 10.5 (9.0-12.0) sec APTT 22.8 43.4 H 96.5 H (22.0-30.0) sec Lipids 01/04/19 Range/Units 02:42 Triglycerides 215 H (<150) mg/dL Cholesterol 134 (<200) mg/dL HDL Cholesterol 54 (40-60) mg/dL CBC 01/03/19 Range/Units 15:16 WBC 9.3 (3.8-10.6) k/uL RBC 5.36 (3.80-5.40) m/uL Hgb 14.7 (11.4-16.0) gm/dL Hct 46.0 (34.0-46.0) % Plt Count 198 (150-450) k/uL Comprehensive Metabolic Panel 01/03/19 Range/Units 15:16 Sodium 140 (137-145) mmol/L Potassium 4.4 (3.5-5.1) mmol/L Chloride 104 (98-107) mmol/L Carbon Dioxide 27 (22-30) mmol/L BUN 23 H (7-17) mg/dL Creatinine 0.62 (0.52-1.04) mg/dL Glucose 133 H (74-99) mg/dL Calcium 9.9 (8.4-10.2) mg/dL AST 19 (14-36) U/L ALT 37 (9-52) U/L Alkaline Phosphatase 88 (38-126) U/L Total Protein 6.6 (6.3-8.2) g/dL Albumin 4.1 (3.5-5.0) g/dL Current Medications Generic Name Dose Route Start Last Admin Trade Name Freq PRN Reason Stop Dose Admin Amlodipine Besylate 10 mg 01/04/19 09:00 Norvasc PO DAILY [facility] Aspirin 325 mg 01/04/19 09:00 Aspirin PO DAILY [facility] Atorvastatin Calcium 20 mg 01/04/19 09:00 Lipitor PO DAILY [facility] Cholecalciferol 1,000 unit 01/04/19 09:00 Vitamin D3 PO DAILY [facility] Cyanocobalamin 1,000 mcg 01/04/19 09:00 Vitamin B-12 PO DAILY [facility] Sodium Chloride 1,000 mls @ 20 mls/hr 01/03/19 15:47 01/03/19 16:02 Saline 0.9% IV 01/04/19 15:46 20 mls/hr .Q24H [facility] Administration Heparin Sodium/Sodium Chloride 250 mls @ 9.798 mls/hr 01/03/19 17:15 01/04/19 07:39 25,000 unit/ Sodium Chloride IV 0 units/kg/hr .Q24H [facility] 0 mls/hr Titration Protocol 12 UNITS/KG/HR Sodium Chloride 1,000 mls @ 20 mls/hr 01/03/19 17:15 01/03/19 17:45 Saline 0.9% IV 20 mls/hr .Q24H [facility] Administration Insulin Aspart 0 unit 01/03/19 17:30 01/03/19 21:35 Novolog SQ 1 unit ACHS [facility] Administration Protocol Levothyroxine Sodium 150 mcg 01/04/19 06:30 01/04/19 05:38 Synthroid PO 150 mcg DAILY@0630 [facility] Administration Liothyronine Sodium 5 mcg 01/04/19 09:00 Cytomel PO DAILY [facility] Lisinopril 20 mg 01/03/19 21:00 01/03/19 21:35 Zestril PO 20 mg BID [facility] Administration Metformin HCl 1,000 mg 01/04/19 12:30 Glucophage PO 1230,1730 [facility] Metformin HCl 500 mg 01/04/19 07:30 Glucophage PO AC-BRKFST [facility] Nitroglycerin 1 inch 01/04/19 00:00 01/04/19 05:39 Nitro-Bid Oint TOPICAL 1 inch Q6HR [facility] Administration Nitroglycerin 0.4 mg 01/03/19 17:13 Nitrostat SUBLINGUAL Q5M PRN Chest Pain Intake and Output 01/03/19 01/04/19 01/04/19 22:59 06:59 14:59 Intake Total 460 664.224 52 Balance 460 664.224 52 Intake: Amount of Fluid Infused ( 60 ml) Intake, IV Titration 214.224 52 Amount Heparin Sod,Pork in 0.45% 94.224 52 NaCl 25,000 unit In 0.45 % NaCl 1 250ml.bag @ 12 UNITS/KG/HR 9.798 mls/hr IV .Q24H [facility] Rx#: [id number] Sodium Chloride 0.9% 1, 120 000 ml @ 20 mls/hr IV . Q24H [facility] Rx#:[id number] Oral 400 450 Other: Voiding Method Toilet # Voids 3 01/03/19 15:16 01/03/19 15:16
[2019-01-04] MEDS: LIOTHYRONINE SODIUM 5 MCG TAB PO SCH (10:55)
[2019-01-04 11:39] LABS: Glucose,Whole Blood 183 mg/dL (75-99)
[2019-01-04] MEDS: SODIUM CHLORIDE 0.9% 1,000 ML IV SCH (12:31)
[2019-01-04] MEDS ORDERED: ENOXAPARIN 80 MG/0.8 ML SYRINGE SQ STA (13:28)
[2019-01-04] MEDS ORDERED: ALPRAZolam 0.25 MG TAB PO PRN (14:57)
[2019-01-04] MEDS ORDERED: ALPRAZolam 0.5 MG TAB PO PRN (14:57)
[2019-01-04 16:27] LABS: Glucose,Whole Blood 144 mg/dL (75-99)
--- NOTE | 2019-01-04 18:29 | ECHOF ---
Referral Reason: MEASUREMENTS -------- HEIGHT: 154.9 cm WEIGHT: 81.6 kg BP: 127/72 IVSd: 1.1 cm (0.6 - 1.1) LVIDd: 4.6 cm (3.9 - 5.3) LVPWd: 1.0 cm (0.6 - 1.1) IVSs: 1.2 cm LVIDs: 3.5 cm LVPWs: 1.3 cm LAESV Index (A-L): 25.21 ml/m Ao Diam: 2.7 cm (2.0 - 3.7) AV Cusp: 1.5 cm (1.5 - 2.6) LA Diam: 3.5 cm (2.7 - 3.8) EPSS: 0.2 cm MV E Bob: 1.25 m/s MV DecT: 223 ms MV A Bob: 1.14 m/s MV E/A Ratio: 1.09 AV maxP.38 mmHg AV meanP.15 mmHg RAP: 5.00 mmHg RVSP: 29.15 mmHg MV EF SLOPE: 135.76 mm/s (70 - 150) MV EXCURSION: 1.54 cm (> 18.000) FINDINGS -------- Sinus rhythm. This was a technically good study. The left ventricular size is normal. Left ventricular wall thickness is normal. Overall left vent ricular systolic function is normal with, an EF between 60 - 65 %. The right ventricle is normal in size and function. Normal LA size by volume 22+/-6 ml/m2. The right atrium is normal in size. Aortic valve is trileaflet and is mildly thickened. There is no evidence of aortic regurgitation. There is no evidence of aortic stenosis. The mitral valve leaflets are mildly thickened. There is trace to mild mitral regurgitation. Trace tricuspid regurgitation present. Right ventricular systolic pressure is normal at < 35 mmHg. There is no evidence of pulmonary hypertension. Trace/mild (physiologic) pulmonic regurgitation. The aortic root size is normal. Normal inferior vena cava with normal inspiratory collapse consistent with estimated right atrial pre ssure of 5 mmHg. There is no pericardial effusion. CONCLUSIONS -------- 1. Sinus rhythm. 2. This was a technically good study. 3. The left ventricular size is normal. 4. Left ventricular wall thickness is normal. 5. Overall left ventricular systolic function is normal with, an EF between 60 - 65 %. 6. Normal LA size by volume 22+/-6 ml/m2. 7. Aortic valve is trileaflet and is mildly thickened. 8. The mitral valve leaflets are mildly thickened. 9. There is trace to mild mitral regurgitation. 10. Trace tricuspid regurgitation present. 11. Right ventricular systolic pressure is normal at < 35 mmHg. 12. There is no evidence of pulmonary hypertension. 13. Trace/mild (physiologic) pulmonic regurgitation. 14. The aortic root size is normal. 15. There is no pericardial effusion. BUNDLE TIER: Margarito Randall RDCS
[2019-01-04 20:33] LABS: Glucose,Whole Blood 161 mg/dL (75-99)
[2019-01-04] MEDS: HEPARIN SODIUM,PORCINE 5,000 UNIT/ML 1 ML VIAL SQ SCH (20:39)
[2019-01-05] MEDS: SODIUM CHLORIDE 0.9% 1,000 ML IV SCH (00:44)
[2019-01-05] MEDS: NITROGLYCERIN SL TABS 0.4 MG TAB SUBLINGUAL PRN ×4 (01:23→06:20)
[2019-01-05] MEDS: metFORMIN 500 MG TAB PO SCH (04:50)
[2019-01-05] MEDS: INSULIN ASPART (NovoLOG) 100 UNIT/ML VIAL SQ SCH ×2 (04:50→14:29)
[2019-01-05] MEDS: LISINOPRIL 20 MG TAB PO SCH (06:11)
[2019-01-05] MEDS: LEVOTHYROXINE 75 MCG TAB PO SCH (06:11)
[2019-01-05] MEDS: CYANOCOBALAMIN 500 MCG TAB PO SCH (06:11)
[2019-01-05] MEDS: CHOLECALCIFEROL 1,000 UNIT TAB PO SCH (06:11)
[2019-01-05] MEDS: HEPARIN SODIUM,PORCINE 5,000 UNIT/ML 1 ML VIAL SQ SCH (06:12)
[2019-01-05] MEDS: amLODIPine 10 MG TAB PO SCH (06:12)
[2019-01-05] MEDS: LIOTHYRONINE SODIUM 5 MCG TAB PO SCH (06:12)
[2019-01-05 06:32] LABS: Glucose,Whole Blood 136 mg/dL (75-99)
[2019-01-05] MEDS ORDERED: ASPIRIN 325 MG TAB PO ONE (08:00)
[2019-01-05] MEDS ORDERED: ATORVASTATIN 80 MG TAB PO ONE (08:00)
[2019-01-05] MEDS ORDERED: LIDOCAINE 1% INJ 10MG/ML (20 ML MDV) ONE (10:31)
[2019-01-05] MEDS ORDERED: HEPARIN SODIUM 1,000 UN/ML (10ML VL) ONE (10:31)
[2019-01-05] MEDS ORDERED: VERAPAMIL 2.5 MG/ML 2 ML AMP ONE (10:31)
[2019-01-05] MEDS ORDERED: SODIUM CHLORIDE 0.9% 1,000 ML IV ONE (10:49)
[2019-01-05] MEDS ORDERED: MIDAZOLAM 2 MG/2 ML VIAL IVP ONE (11:05)
[2019-01-05] MEDS ORDERED: LIDOCAINE 1% INJ 10MG/ML (20 ML MDV) SQ ONE (11:06)
[2019-01-05] MEDS ORDERED: VERAPAMIL SYRINGE (5 MG/10 ML) INTRAARTER ONE ×2 (11:07→11:22)
[2019-01-05] MEDS ORDERED: IOPAMIDOL-370 100ML BTL INJ ONE (11:22)
[2019-01-05] MEDS ORDERED: RX INFO: IV CONTRAST WAS GIVEN 1 EACH MISC MISCELLANE PRN (11:28)
[2019-01-05] MEDS ORDERED: SODIUM CHLORIDE 0.9% 1,000 ML IV SCH (11:30)
[2019-01-05 11:53] LABS: Glucose,Whole Blood 151 mg/dL (75-99)
[2019-01-05 11:59] VITALS: RESP 18
--- NOTE | 2019-01-05 12:13 | P.HPIM ---
History of Present Illness H&P Date: 01/04/19 Chief Complaint: Chest pain 73-year-old female past medical history significant for diabetes mellitus, dyslipidemia and hypertension. She denies history of coronary artery disease. We've been asked to see her in consultation for chest discomfort. She states for the previous week she has had a pressure heavy sensation in the back in the mid scapular region radiates down the left arm at times not associated with shortness of breath, dizziness, nausea, vomiting or diaphoresis. She also denies any symptoms of palpitations, PND orthopnea. The pain has been very intermittent with no specific aggravating or alleviating factors. Yesterday it was persistent all day despite taking Tylenol and pnpz-tmd-etwlzir remedies. EKG reveals sinus mechanism with nonspecific ST abnormalities noted in no acute changes. Chest x-ray is negative for acute cardiopulmonary process. Laboratory data reviewed, cardiac enzymes negative 3. Current cardiac medications include atorvastatin 20 mg daily, lisinopril 20 mg twice a day, amlodipine 10 mg daily. Review of Systems CONSTITUTIONAL: Denies fever. Denies chills. EYES: Denies blurred vision. Denies vision changes. Denies eye pain. EARS, NOSE, MOUTH & THROAT: Denies headache. Denies sore throat. Denies ear pain. CARDIOVASCULAR: Denies chest pain. Denies shortness of breath. Denies orthopnea. Denies PND. Denies palpitations. RESPIRATORY: Denies cough. GASTROINTESTINAL: Denies abdominal pain. Denies diarrhea. Denies constipation. Denies nausea. Denies vomiting. MUSCULOSKELETAL: Denies myalgias. INTEGUMENTARY: Denies pruitis. Denies rash. NEUROLOGIC: Denies numbness. Denies tingling. Denies weakness. PSYCHIATRIC: Denies anxiety. Denies depression. ENDOCRINE: Denies fatigue. Denies weight change. Denies polydipsia. Denies polyurina. GENITOURINARY: Denies burning, hematuria or urgency with micturation. HEMATOLOGIC: Denies history of anemia. Denies bleeding. Past Medical History Past Medical History: Blood Disorder, Cancer, Diabetes Mellitus, GERD/Reflux, Hypertension, Pneumonia Additional Past Medical History / Comment(s): Thyroid cancer 1998, radioactive pill. Does have heart 'flutters', unknown if atrial. History of Any Multi-Drug Resistant Organisms: None Reported Past Surgical History: Section, Orthopedic Surgery, Tubal Ligation Additional Past Surgical History / Comment(s): Thyroidectomy for CA 1998; Lt knee arthroscopy, bilateral carpal tunnel procedures. Past Anesthesia/Blood Transfusion Reactions: No Reported Reaction Past Psychological History: No Psychological Hx Reported Smoking Status: Never smoker Past Alcohol Use History: None Reported Past Drug Use History: None Reported Medications and Allergies Home Medications Medication Instructions Recorded Confirmed Type Atorvastatin [Lipitor] 20 mg PO DAILY 05/22/14 01/03/19 History Liothyronine Sodium [Cytomel] 5 mcg PO DAILY 05/22/14 01/03/19 History Lisinopril [Zestril] 20 mg PO BID 05/22/14 01/03/19 History Cholecalciferol [Vitamin D3] 1,000 unit PO DAILY 01/03/19 01/03/19 History Cyanocobalamin (Vitamin B-12) 1,000 mcg PO DAILY 01/03/19 01/03/19 History [Vitamin B-12] Levothyroxine Sodium [Synthroid] 150 mcg PO DAILY 01/03/19 01/03/19 History amLODIPine [Norvasc] 10 mg PO DAILY 01/03/19 01/03/19 History metFORMIN HCL [Glucophage] 1,000 mg PO BID 01/03/19 01/03/19 History metFORMIN HCL [Glucophage] 500 mg PO DAILY 01/03/19 01/03/19 History Allergies Allergy/AdvReac Type Severity Reaction Status Date / Time No Known Allergies Allergy Verified 01/03/19 16:26 Physical Exam Vitals: Vital Signs Temp Pulse Pulse Resp BP BP BP 01/04/19 16:00 97.8 F 72 18 139/73 01/04/19 12:00 97.8 F 72 16 143/83 01/04/19 08:00 98.1 F 68 18 127/72 01/04/19 03:29 72 16 01/04/19 03:26 98.3 F 72 16 118/68 01/03/19 23:45 76 16 01/03/19 23:35 98.2 F 76 16 109/58 01/03/19 20:57 97.7 F 70 18 159/79 01/03/19 20:43 98.0 F 138/78 01/03/19 20:40 77 01/03/19 20:30 71 01/03/19 20:20 74 14 01/03/19 20:10 77 01/03/19 19:30 108/70 01/03/19 19:20 78 14 108/70 01/03/19 19:10 77 99/65 01/03/19 19:00 82 110/60 01/03/19 18:50 75 110/60 01/03/19 18:40 77 99/66 01/03/19 18:30 79 122/63 01/03/19 18:20 78 122/63 01/03/19 18:10 79 116/61 01/03/19 18:00 76 124/95 01/03/19 17:50 77 124/95 01/03/19 17:40 67 01/03/19 17:30 85 122/70 01/03/19 17:20 122/70 01/03/19 17:10 75 116/70 01/03/19 17:00 72 123/69 01/03/19 16:50 75 123/69 Pulse Ox 01/04/19 16:00 96 01/04/19 12:00 96 01/04/19 08:00 93 L 01/04/19 03:29 01/04/19 03:26 95 01/03/19 23:45 01/03/19 23:35 98 01/03/19 20:57 96 01/03/19 20:43 01/03/19 20:40 01/03/19 20:30 94 L 01/03/19 20:20 93 L 01/03/19 20:10 95 01/03/19 19:30 01/03/19 19:20 96 01/03/19 19:10 01/03/19 19:00 93 L 01/03/19 18:50 92 L 01/03/19 18:40 94 L 01/03/19 18:30 01/03/19 18:20 94 L 01/03/19 18:10 96 01/03/19 18:00 94 L 01/03/19 17:50 95 01/03/19 17:40 01/03/19 17:30 01/03/19 17:20 01/03/19 17:10 92 L 01/03/19 17:00 94 L 01/03/19 16:50 93 L Intake and Output 01/04/19 01/04/19 01/04/19 06:59 14:59 22:59 Intake Total 664.224 52 Balance 664.224 52 Intake: Intake, IV Titration 214.224 52 Amount Heparin Sod,Pork in 0.45% 94.224 52 NaCl 25,000 unit In 0.45 % NaCl 1 250ml.bag @ 12 UNITS/KG/HR 9.798 mls/hr IV .Q24H [facility] Rx#: [id number] Sodium Chloride 0.9% 1, 120 000 ml @ 20 mls/hr IV . Q24H [facility] Rx#:[id number] Oral 450 Other: Voiding Method Toilet Toilet # Voids 3 Weight 83.2 kg GENERAL: This is a 73-year-old female in no apparent distress at the time of my examination. HEENT: Head is atraumatic, normocephalic. Pupils are equal, round. Sclerae anicteric. Conjunctivae are clear. Mucous membranes of the mouth are moist. Neck is supple. There is no jugular venous distention. No carotid bruit is heard. LUNGS: Clear to auscultation no wheezes, rales or rhonchi. No chest wall tenderness is noted on palpation or with deep breathing. HEART: Regular rate and rhythm without murmurs, rubs or gallops. S1 and S2 heard. ABDOMEN: Soft, nontender. Bowel sounds are heard. No organomegaly noted. EXTREMITIES: No evidence of peripheral edema and no calf tenderness noted. VASCULAR: Radial and dorsalis pedis pulses palpated, no evidence of clubbing. NEUROLOGIC: Patient is awake, alert and oriented x3. Results CBC & Chem 7: 01/03/19 15:16 01/03/19 15:16 Labs: Abnormal Lab Results - Last 24 Hours (Table) 01/03/19 01/04/19 01/04/19 Range/Units 21:31 00:05 02:42 APTT 43.4 H (22.0-30.0) sec POC Glucose (mg/dL) 142 H (75-99) mg/dL Triglycerides 215 H (<150) mg/dL 01/04/19 01/04/19 01/04/19 Range/Units 06:20 06:44 11:38 APTT 96.5 H (22.0-30.0) sec POC Glucose (mg/dL) 157 H 183 H (75-99) mg/dL Triglycerides (<150) mg/dL 01/04/19 Range/Units 16:25 APTT (22.0-30.0) sec POC Glucose (mg/dL) 144 H (75-99) mg/dL Triglycerides (<150) mg/dL Thrombosis Risk Factor Assmnt - Choose All That Apply Any of the Below Risk Factors Present?: Yes Each Factor Represents 1 point: Obesity (BMI >25), Swollen legs (current) Each Risk Factor Represents 2 Points: Age 61-74 years Other congenital or acquired thrombophilia - If yes, enter type in comment: No Thrombosis Risk Factor Assessment Total Risk Factor Score: 4 Thrombosis Risk Factor Assessment Level: Moderate Risk Assessment and Plan Assessment: 1. Chest pain, atypical for angina. An acute coronary event has been ruled out. An acute coronary event has been ruled out with no EKG evidence of ischemia negative cardiac enzymes. Obtain 2-D echocardiogram and Doppler study to assess cardiac structure and function. Discontinue heparin infusion. Patient for possible cardiac catheterization if chest pain recurs with activity 2. Hypertension; stable on amlodipine 10 mg daily along with lisinopril 20 mg twice a day 3. Dyslipidemia; continue with home dose of Lipitor 4. Diabetes mellitus 2; continue with home dose of metformin - Monitor Accu-Cheks every seen and at bedtime with insulin sliding scale 5. DVT prophylaxis; subcu heparin CODE STATUS; full code
--- NOTE | 2019-01-05 12:24 | CC ---
CARDIAC CATHETERIZATION REPORT DATE OF SERVICE: 01/05/2019 PROCEDURE: Left heart catheterization and coronary angiography. PERFORMED BY: Dr. Ricardo Luo. SEDATION: Moderate conscious sedation time was 16 minutes. Patient was given Versed. Oxygen saturation, hemodynamics and EKG were monitored closely. CLINICAL INFORMATION: Mrs. Elif Lanza is a 73-year-old lady with a history of obesity, hypertension, hyperlipidemia, type 2 diabetes, who came into the hospital with chest pain suggestive of angina, did not have troponin elevation, but upon ambulation had recurrent episode of left-sided chest discomfort requiring sublingual nitroglycerin. Therefore, she was advised coronary angiography. PROCEDURE NOTE: Under local anesthesia and strict aseptic precautions, a 6-Slovenian introducer was placed in the right radial artery. Using Ultimata 1 catheter I performed selective coronary angiography of the left system. Using a JR4 catheter, I performed selective coronary angiography of the RCA. Same catheter was used to check the LV pressures. LV gram was not performed. By echo, ejection fraction was 60%. The patient tolerated procedure well. The sheath was taken out and TR band applied as per protocol and she was sent to the room in a stable condition. CARDIAC CATHETERIZATION FINDINGS: The left ventricle end-diastolic pressure was 10 mmHg without any gradient across aortic valve. CORONARY ANGIOGRAPHY FINDINGS: RIGHT CORONARY ARTERY: Technically a codominant vessel. Good caliber, minor irregularities. Mild calcification distally. RCA distally continues and gives off a large PDA, but the PLV is quite small. PDA and RCA are free of significant disease. PLV is a small vessel. LEFT MAIN CORONARY ARTERY: Very short vessel free of significant disease immediately bifurcates into LAD and circumflex. LEFT ANTERIOR DESCENDING CORONARY ARTERY: Good caliber vessel extends along the anterior wall, gives off septal and diagonal branches. Runs all the way to the apex, tortuous fashion, minor irregularities. No significant disease. LEFT POSTERIOR CIRCUMFLEX CORONARY ARTERY: Technically a codominant vessel gives off a single obtuse marginal, which runs laterally in the PLV distribution. The continuation of circumflex in the AV groove and distal posterolateral branch are free of significant disease. Circumflex is tortuous, has minor irregularities. No significant disease. FINAL IMPRESSION: This patient has a codominant, probably a right dominant system. No significant obstructive disease. Normal filling pressures. There is some calcification, but no significant obstructive disease is noted. Filling pressures are normal and no gradient across aortic valve. RECOMMENDATION: Findings were discussed with the patient and family. No aggressive intervention necessary from a cardiac standpoint other than risk factor modification and addressing her hypertension and diabetes issues. She will be discharged later on today and will see me in the office next week. Continued medical therapy with risk factor modification is advised. MMODL / IJN: [id number] /
--- NOTE | 2019-01-05 14:09 | PN ---
PROGRESS NOTE Mrs. Lanza is a lady with exertional chest tightness, pressure and more importantly left arm discomfort. She required some sublingual nitroglycerin in the night. Her pain raises the possibility of angina. She has hypertension, type 2 diabetes and hyperlipidemia and obesity. I am recommending coronary angiography. She understands the rationale, risks, benefits, options and wishes to proceed. MMODL / IJN: [id number] /
[2019-01-05 16:34] LABS: Glucose,Whole Blood 244 mg/dL (75-99)
[2019-01-05 17:55] VITALS: BP 132/66; PULSE 66; TEMP 97.9
[2019-01-06] MEDS ORDERED: CAFFEINE CITRATE 60 MG/3 ML VIAL IV PRN (06:00)
[2019-01-06] MEDS ORDERED: REGADENOSON 0.4 MG/5 ML SYRINGE IV ONE (06:00)
[2019-01-07] MEDS ORDERED: metFORMIN 500 MG TAB PO SCH (17:30)
[2019-01-08] MEDS ORDERED: metFORMIN 500 MG TAB PO SCH (07:30)
== END 2019-01-05 17:59 | disposition home or self-care (01) ==
LOC: EC 14:48 → 3SCARD 17:13 → 1SOBS 20:34 → 3SCARD 01-04 13:47
PROVIDERS: ADMIT Family Medicine; ATTEND Family Medicine
DX: R07.89 Other chest pain (principal); R11.0 Nausea; M79.602 Pain in left arm; E11.9 Type 2 diabetes mellitus without complications; E78.5 Hyperlipidemia, unspecified; K21.9 Gastro-esophageal reflux disease without esophagitis; E89.0 Postprocedural hypothyroidism; I10 Essential (primary) hypertension; E66.9 Obesity, unspecified; Z68.34 Body mass index [BMI] 34.0-34.9, adult; Z79.899 Other long term (current) drug therapy; Z79.890 Hormone replacement therapy; Z79.84 Long term (current) use of oral hypoglycemic drugs; Z87.01 Personal history of pneumonia (recurrent); Z85.850 Personal history of malignant neoplasm of thyroid
CPT/HCPCS: 96376 ×3; 96361; 96366 ×3; 96372; 96365; 99291; 36415; 93005; 93306; 93458; 85379; 83880; 80061; 80053; 82150; 82550; 83690; 83735; 84484 ×2; 85025; 85610; 85730 ×2; 71046; G0378 ×3; C1894; J2250; J1644 ×4; J2001; J1650; Q9967

== ENCOUNTER → 2019-02-17 | Outpatient (CLI) | payer MEDICARE, BC ==
[2019-02-17 13:22] LABS: Blood Urea Nitrogen 26 mg/dL (7-17)
--- NOTE | 2019-02-17 14:25 | CT ---
EXAMINATION TYPE: CT brain w con DATE OF EXAM: 02/17/2019 COMPARISON: None. HISTORY: Lump under left jaw, history of thyroid cancer, altered mental status. CT DLP: 1051.90 mGycm Automated exposure control for dose reduction was used. CONTRAST: CT scan of the head is performed with IV Contrast, patient injected with 100 mL of Isovue 300. FINDINGS: There is no abnormal enhancing mass or midline shift identified. The ventricles and sulci are within normal limits in size. The globes are intact and the visualized sinuses are clear. Soft tissue dens ity right external auditory canal favors cerumen. The calvarium is intact. IMPRESSION: No abnormal enhancing mass or midline shift.
--- NOTE | 2019-02-17 14:29 | CT ---
EXAMINATION TYPE: CT soft tissue neck w con DATE OF EXAM: 02/17/2019 HISTORY: Lump under left jaw, history of thyroid cancer COMPARISON: NONE CT DLP: 611.10 mGycm. Automated Exposure Control for Dose Reduction was Utilized. TECHNIQUE: CT scan of the neck is performed with IV Contrast, patient injected with 100 mL of Isovue 300, axial images are obtained, coronal and sagittal reformatted images are reviewed. FINDINGS: Airway: No gross abnormality seen. Parotid/submandibular glands: No gross abnormality seen. Carotid/Vascular Structures: Dominant right vertebral artery incidentally noted. Osseous Structures: There is spondylolisthesis or grade 1 retrolisthesis C5 on C6 and C6 on C7 . Mode rate narrowing and spurring C5-C6 level is present. Other: No suspicious greater than 1 cm neck adenopathy. Prominent but subcentimeter lymph nodes throu ghout the neck bilaterally. The largest lymph nodes left submandibular level axial image 27 measures 1.2 x 0.8 cm. No suspicious mass or adenopathy at left submandibular region and area of clinical conc miryam IMPRESSION: No definitive mass or adenopathy identified to suggest metastatic malignant recurrence
== END | disposition home or self-care (01) ==
LOC: RADCTMAIN 12:38
PROVIDERS: ATTEND Family Medicine
DX: R22.1 Localized swelling, mass and lump, neck (principal); Z85.850 Personal history of malignant neoplasm of thyroid
CPT/HCPCS: 82565; 84520; 70491; 70460; 36415; Q9967

== ENCOUNTER → 2019-06-10 | Outpatient (CLI) | payer MEDICARE, BC ==
--- NOTE | 2019-06-10 13:32 | BD ---
EXAMINATION TYPE: Axial Bone Density DATE OF EXAM: 06/10/2019 COMPARISON: 12.18.2016 CLINICAL HISTORY: 73 YR OLD FEMALE....ICD-10 CODE: Z78.0 ASYMPTOMATIC MENOPAUSE Height: 59.7 Weight: 179 FRAX RISK QUESTIONS: Family History (Parent hip fracture): YES, MOTHER RISK FACTORS HISTORY OF: Family History of Osteoporosis: YES, MOTHER WITH FX Postmenopausal woman: 53 YRS OLD Lost more than 2 inches in height since high school: YES MEDICATIONS: Thyroid Medications: YES, SYNTHROID FOR ABOUT 20 YRS Additional Medications: BP MEDS, RADIOACTIVE IODINE TO KILL THYROID, DIABETIC MEDS, REFLUX MEDS PRN, STATIN FOR CHOLESTEROL, VIT D, Additional History: THYROID CA, DIABETIC, HYPERTENSION, REFLUX, CHOLESTEROL EXAM MEASUREMENTS: Bone mineral densitometry was performed using the [employer] System. Bone mineral density as measured about the Lumbar spine is: ----- L1-L4(G/cm2): 1.078 T Score Values are as follows: ----- L1: -1.7 ----- L2: -0.5 ----- L3: -1.0 ----- L4: -0.5 ----- L1-L4: -0.8 Bone mineral density has: Increased 1.7% since study of: 12.18.2016 Bone mineral density about the R hip (g/cm2): 0.823 Bone mineral density about the L hip (g/cm2): 0.777 T Score values are as follows: -----R Neck: -1.8 -----L Neck: -1.7 -----R Total: -1.5 -----L Total: -1.8 Bone mineral density has: Decreased -5.1% since study of: 12.18.2016 FRAX%s: THERE IS A 17.0% CHANCE FOR A MAJOR OSTEOPOROTIC FX AND A 6.3% FOR HIP.....PROBABILITY FOR FX IN 10 YRS TIME IMPRESSION: Osteopenia (T Score between -2.5 and -1). There is slightly increased risk of fracture and the patient may be considered for treatment. Re-Screen 2-5 years. NOTE: T-SCORE=SD OF THE YOUNG ADULT MEAN.
--- NOTE | 2019-06-12 10:05 | MM ---
Reason for exam: screening (asymptomatic). Last mammogram was performed 1 year and 1 month ago. History: Patient is postmenopausal and history of other cancer. Taking unspecified hormones for 8 years beginning at age 53. Physical Findings: A clinical breast exam by your physician is recommended on an annual basis and results should be correlated with mammographic findings. MG 3D Screening Mammo W/Cad Bilateral CC and MLO view(s) were taken. Prior study comparison: May 16, 2018, bilateral MG 3d screening mammo w/cad. December 18, 2016, bilateral MG 3d screening mammo w/cad. The breast tissue is heterogeneously dense. This may lower the sensitivity of mammography. There is chronic nodularity in the left breast. No significant changes when compared with prior studies. ASSESSMENT: Benign, BI-RAD 2 RECOMMENDATION: Routine screening mammogram of both breasts in 1 year.
== END | disposition home or self-care (01) ==
LOC: RADBDWWP 10:29
PROVIDERS: ATTEND Family Medicine
DX: Z12.31 Encounter for screening mammogram for malignant neoplasm of breast (principal); M85.80 Other specified disorders of bone density and structure, unspecified site; Z78.0 Asymptomatic menopausal state
CPT/HCPCS: 77063; 77067; 77080

== ENCOUNTER → 2020-08-05 | Outpatient (CLI) | payer MEDICARE, BC ==
--- NOTE | 2020-08-09 12:27 | MM ---
Reason for exam: screening (asymptomatic). Last mammogram was performed 1 year and 2 months ago. History: Patient is postmenopausal and history of other cancer. Taking unspecified hormones for 8 years beginning at age 53. Physical Findings: A clinical breast exam by your physician is recommended on an annual basis and results should be correlated with mammographic findings. MG 3D Screening Mammo W/Cad Bilateral CC and MLO view(s) were taken. XCCL view(s) were taken of the left breast. Prior study comparison: June 10, 2019, bilateral MG 3d screening mammo w/cad. May 16, 2018, bilateral MG 3d screening mammo w/cad. Bilateral circumscribed nodularity persists in a benign pattern. No significant changes when compared with prior studies. ASSESSMENT: Benign, BI-RAD 2 RECOMMENDATION: Routine screening mammogram of both breasts in 1 year.
== END | disposition home or self-care (01) ==
LOC: RADMAMWWP 16:16
PROVIDERS: ATTEND Family Medicine
DX: Z12.31 Encounter for screening mammogram for malignant neoplasm of breast (principal)
CPT/HCPCS: 77063; 77067

== ENCOUNTER 2021-04-08 06:59 | Day surgery (SDC) | payer MEDICARE, BC ==
[2021-04-05 09:30] VITALS: BMI 34.7
[~2021-04-08 06:59] MED LIST: LIDOCAINE 1% (10MG/ML) FOR IV START INTRADERMA PRN
[2021-04-08 07:34] VITALS: RESP 16; TEMP 97.4
[2021-04-08] MEDS: LACTATED RINGERS 1,000 ML IV SCH ×2 (07:37→07:39)
[2021-04-08 07:40] LABS: Glucose,Whole Blood 139 mg/dL (75-99)
[2021-04-08] MEDS ORDERED: PROPOFOL 10 MG/ML 20 ML VIAL IV ONE (07:41)
--- NOTE | 2021-04-08 08:02 | P.PCN ---
Date of Procedure: 04/08/21 Procedure(s) Performed: BRIEF HISTORY: Patient is a 75-year-old pleasant white female scheduled for an elective colonoscopy as a part of evaluation of prior history of colon polyps. Her last colonoscopy was 5 years ago. PROCEDURE PERFORMED: Colonoscopy with snare polypectomy. PREOPERATIVE DIAGNOSIS: History of colon polyps. IV sedation per Anesthesia. PROCEDURE: After informed consent was obtained, the patient, was brought into the endoscopy unit. IV sedation was administered by Anesthesia under continuous monitoring. Digital rectal examination was normal. Initially the Olympus CF-160 flexible video colonoscope was then inserted in the rectum, gradually advanced into the cecum without any difficulty. Careful examination was performed as the scope was gradually being withdrawn. Ileocecal valve and the appendiceal orifice were visualized and appeared normal. Prep was excellent. Mucosa of the cecum, ascending colon, transverse colon, appeared normal. In the descending colon there was a 5 mm polyp that was removed by snare polypectomy. Rest of the descending colon, sigmoid colon, and rectum appeared normal. Retroflexion was performed in the rectum and no lesions were seen. The patient tolerated the procedure well. IMPRESSION: 5 mm descending colon polyp status post snare polypectomy Scattered sigmoid diverticulosis RECOMMENDATIONS: Findings of this examination were discussed with the patient as well as a family. She was advised to follow with the biopsy results. If the biopsy shows an adenoma she can have a repeat coloscopy in 5 years.
[2021-04-08 08:32] VITALS: PULSE 69
[2021-04-08 08:37] VITALS: BP 127/69
== END 2021-04-08 08:44 | disposition home or self-care (01) ==
LOC: ORWHC2ENDO 06:59
PROVIDERS: ATTEND Internal Medicine Gastroenterology
DX: Z12.11 Encounter for screening for malignant neoplasm of colon (principal); K57.90 Diverticulosis of intestine, part unspecified, without perforation or abscess without bleeding; D12.4 Benign neoplasm of descending colon; E11.9 Type 2 diabetes mellitus without complications; I10 Essential (primary) hypertension; Z79.899 Other long term (current) drug therapy; E78.5 Hyperlipidemia, unspecified; I48.92 Unspecified atrial flutter; K21.9 Gastro-esophageal reflux disease without esophagitis
CPT/HCPCS: 88305; 45385; J2704

== ENCOUNTER → 2021-08-30 | Outpatient (CLI) | payer MEDICARE, BC ==
--- NOTE | 2021-08-30 12:23 | BD ---
EXAMINATION TYPE: Axial Bone Density DATE OF EXAM: 08/30/2021 COMPARISON: DEXA bone scan June 10, 2019 CLINICAL HISTORY: Postmenopausal female Height: 5 FT 1/2 IN Weight: 180 FRAX RISK QUESTIONS: Alcohol (3 or more units per day): NO Family History (Parent hip fracture): YES Glucocorticoids (More than 3mos): NO (Ex: prednisone, prednisolone, methylprednisolone, dexamethasone, and hydrocortisone). History of Fracture in Adulthood: NO Secondary Osteoporosis: 1. Type 1 Diabetes: TYPE 2 2. Hyperthyroidism: NO 3. Menopause before 45: NO 4. Malnutrition: NO 5. Chronic liver disease: NO Rheumatoid Arthritis: NO Current Tobacco Use: NO RISK FACTORS HISTORY OF: Surgery to Spine/Hip(right/left)/Wrist (right/left): NO Family History of Osteoporosis: YES Active: YES Diet low in dairy products/other sources of calcium: NO Postmenopausal woman: PT HAD RADIOACTIVE IODINE TO KILL OFF THYROID SHE NEVER HAD A PERIOD AGAIN AROU ND AGE 53 Take estrogen and/or progesterone medications: NO Lost more than 2 inches in height since high school: YES Poor Health: GOOD Hyperparathyroidism: NO Adrenal Insufficiency: NO MEDICATIONS: Thyroid Medications: YES Which medication: SYNTHROID How Long: FOR APPROX 22 YEARS Additional Medications: SYNTHROID, LISINOPRIL, METFORMIN, LIPITOR, NORVASC, MAGNESIUM, CALCIUM Additional History: BILATERAL CARPAL TUNNEL SURG EXAM MEASUREMENTS: Bone mineral densitometry was performed using the [employer] System. Bone mineral density as measured about the Lumbar spine is: ----- L1-L4(G/cm2): 1.154 T Score Values are as follows: ----- L2: 0.0 ----- L3: -0.4 ----- L4: 0.1 ----- L1-L4: -0.2 Bone mineral density has: INCREASED 6.4 % since study of: 2018 Bone mineral density about the R hip (g/cm2): 0.709 Bone mineral density about the L hip (g/cm2): 0.756 T Score values are as follows: -----R Neck: -2.4 -----L Neck: -2.0 -----R Total: -1.8 -----L Total: -1.9 Bone mineral density has: DECREASED -3.0 % since study of: 2019 IMPRESSION: Osteopenia (T Score between -2.5 and -1) in both hips remains present. There remains slightly increased risk of fracture and the patient may be considered for treatment. Re-Screen 2-5 years. NOTE: T-SCORE=SD OF THE YOUNG ADULT MEAN.
--- NOTE | 2021-08-31 10:48 | MM ---
Reason for exam: screening (asymptomatic). Last mammogram was performed 1 year and 1 month ago. History: Patient is postmenopausal and history of other cancer. Taking unspecified hormones for 8 years beginning at age 53. Physical Findings: A clinical breast exam by your physician is recommended on an annual basis and results should be correlated with mammographic findings. MG 3D Screening Mammo W/Cad Bilateral CC and MLO view(s) were taken. XCCL view(s) were taken of the left breast. Prior study comparison: August 05, 2020, bilateral MG 3d screening mammo w/cad. June 10, 2019, bilateral MG 3d screening mammo w/cad. The breast tissue is heterogeneously dense. This may lower the sensitivity of mammography. Finding #1: There is stable architectural distortion in the right breast from 2017. Finding #2: There are typically benign dystrophic, round calcifications in both breasts. Asymmetric breast tissue left subareolar breast, stable. There is no discrete abnormality. ASSESSMENT: Benign, BI-RAD 2 RECOMMENDATION: Routine screening mammogram of both breasts in 1 year.
== END | disposition home or self-care (01) ==
LOC: RADMAMWWP 10:18
PROVIDERS: ATTEND Family Medicine
DX: Z12.31 Encounter for screening mammogram for malignant neoplasm of breast (principal); M85.89 Other specified disorders of bone density and structure, multiple sites; Z78.0 Asymptomatic menopausal state; Z79.84 Long term (current) use of oral hypoglycemic drugs
CPT/HCPCS: 77063; 77067; 77080

== ENCOUNTER → 2022-05-18 | Outpatient (CLI) | payer MEDICARE, BC ==
--- NOTE | 2022-05-18 11:27 | XR ---
EXAMINATION TYPE: XR lumbosacral spine 5 views DATE OF EXAM: 05/18/2022 Comparison: None Clinical History: 76-year-old female M54.41 Lumbago with sciatica Findings: Osteopenia. 5 lumbar type vertebral bodies. Hypertrophic facet arthropathy throughout, greatest in th e mid and lower lumbar spine. Trace grade 1 anterolisthesis L4 on L5. Mild to moderate degenerative d isc disease mid to lower time. Interval body heights are preserved. Impression: Osteopenia and advanced hypertrophic facet arthropathy throughout. Mild degenerative disc disease. Gr sabiha 1 anterolisthesis L4-L5. No vertebral compression collapse.
== END | disposition home or self-care (01) ==
LOC: RADXRMAIN 09:27
PROVIDERS: ATTEND Family Medicine
DX: M51.26 Other intervertebral disc displacement, lumbar region (principal); M43.16 Spondylolisthesis, lumbar region
CPT/HCPCS: 72110

== ENCOUNTER → 2022-06-12 | Outpatient (CLI) | payer MEDICARE, BC ==
--- NOTE | 2022-06-12 15:22 | MR ---
EXAMINATION TYPE: MR lumbar spine wo/w con DATE OF EXAM: 06/12/2022 12:40 PM COMPARISON: None. CLINICAL INDICATION:Female, 76 years old with history of M54.41 lumbago; TECHNIQUE: Multi planar, multi sequence imaging was performed utilizing: T1-weighted, T2-weighted, a nd turbo inversion recovery imaging of the lumbar spine. IV Contrast: 8 cc Gadavist FINDINGS: Alignment: The lumbar vertebral bodies have preserved heights with grade 1 anterolisthesis of L3 on L 4. Cord: The conus medullaris and the distal spinal cord appear unremarkable with regards to their signa l intensity and morphology. Bones/Discs: Increased inversion recovery signal T11 along the right aspect adjacent to osteophytes. Multilevel degenerative disc disease is noted and most pronounced at the L3-L4. Facet joint arthropat hy is moderate to severe throughout the lumbar spine T11-T12: disc bulging and osteophytes resulting in moderate spinal canal stenosis. Suggested arthropa thy is also present with moderate to severe neural foraminal stenosis bilaterally. T12-L1: No significant spinal canal stenosis at this level. There is facet joint arthropathy with min imal bilateral neural foraminal stenosis. L1-L2: Disc bulge and facet joint arthropathy result in mild spinal canal and mild to moderate bilate ral neural foraminal stenosis. L2-L3: Disc bulge and facet joint arthropathy result in mild spinal canal and mild to moderate bilate ral neural foraminal stenosis. L3-L4: Disc uncovering with bulging result in severe spinal canal stenosis and moderate bilateral libby ral foraminal stenosis. Bulge and facet joint arthropathy result in mild spinal canal and mild to mod erate bilateral neural foraminal stenosis. L4-L5: Disc bulge and facet joint arthropathy result in mild spinal canal and mild to moderate bilate ral neural foraminal stenosis. L5-S1: Disc bulging without significant spinal canal stenosis. Facet joint arthropathy is also presen t with mild bilateral neural foraminal stenosis. Other findings: High T2 signal right renal cyst. IMPRESSION: 1. L3-L4 severe spinal canal stenosis secondary to grade 1 anterolisthesis with facet joint arthropat hy. 2. T11-T12 moderate spinal canal stenosis and moderate to severe bilateral neural foraminal stenosis 3. Reactive bone marrow edema within the T11 vertebral body likely secondary to disc degeneration cordelia nges at this level. 4. Moderate to severe facet joint arthropathy throughout the spine.
== END | disposition home or self-care (01) ==
LOC: RADMRIMAIN 11:15
PROVIDERS: ATTEND Family Medicine
DX: M47.817 Spondylosis without myelopathy or radiculopathy, lumbosacral region (principal); M99.74 Connective tissue and disc stenosis of intervertebral foramina of sacral region; M43.16 Spondylolisthesis, lumbar region; M48.05 Spinal stenosis, thoracolumbar region; M51.26 Other intervertebral disc displacement, lumbar region
CPT/HCPCS: 72158; A9585

== ENCOUNTER → 2022-08-04 | Outpatient (CLI) | payer MEDICARE, BC ==
--- NOTE | 2022-08-04 14:38 | XR ---
EXAMINATION TYPE: XR lumbar spine with bend/flex DATE OF EXAM: 08/04/2022 2:26 PM INDICATION: Patient age:Female; 76 years old; Reason for study: [id number]; COMPARISON: CT lumbar same day. TECHNIQUE: Frontal, lateral and coned in L5-S1 lateral views of the spine. Flexion standing left. FINDINGS: No evidence of any acute osseous pathology. No evidence of loss of vertebral body height i s seen. There is normal alignment of the lumbar vertebral bodies. Mild scattered disc space narrowing . Multilevel marginal osteophyte formation throughout the visualized spine. There is facet joint arth ropathy throughout the spine. Scattered at least mild neural foraminal stenosis. Grade 1 anterolisthe sis of L3 and L4 and L4 and L5. IMPRESSION: 1. No acute fracture. 2. Mild multilevel disc degeneration. 3. Grade 1 anterolisthesis of L3 L4 and L4 L5.
--- NOTE | 2022-08-04 21:49 | CT ---
EXAMINATION TYPE: CT lumbar spine wo con DATE OF EXAM: 08/04/2022 COMPARISON: None HISTORY: 76-year-old female M48.062 SPINAL STENOSIS, LUMBAR REGION WITH NEUROG, lower back pain x6 mo nths TECHNIQUE: Contiguous axial scanning of the lumbar spine without IV contrast. Coronal and sagittal re constructions performed. CT DLP: 891 mGycm Automated exposure control for dose reduction was used. FINDINGS: There is a right kidney lower pole cortical cyst measuring 2.4 cm. No prevertebral paravertebral soft tissue abnormality seen. Mild degenerative change at the bilateral SI joints. Bulky anterior endplate spondylosis T10-T11. There is mild congenital spinal canal stenosis in the lower lumbar spine with AP canal dimension of 1 .0 cm. Mild to moderate multilevel degenerative disc disease with a variable mild disc space narrowing and d isc bulging. Vacuum phenomenon noted at L4-L5. There is hypertrophic facet arthropathy throughout the lumbar spine with scattered ligamentum flavum thickening especially mid to lower lumbar spine. Trace grade 1 anterolisthesis L3-L4 and L4-L5. Vertebral body heights are preserved. At T12-L1, there is mild diffuse disc bulge and superimposed right paracentral protrusion. This impre sses on the ventral thecal sac but without any significant spinal canal stenosis. Facet arthropathy w ithout neural foraminal stenosis. At L1-L2, facet arthropathy without significant canal or foraminal stenosis. At L2-L3, mild diffuse disc bulge with facet arthropathy. There is mild narrowing of the spinal canal with mild bilateral neuroforaminal stenosis. At L3-L4, hypertrophic facet arthropathy with ligamentum flavum thickening, disc bulge, and grade 1 a nterolisthesis. Changes result in moderate spinal canal stenosis with moderate bilateral neuroforamin al stenosis. At L4-L5, diffuse disc bulge with hypertrophic facet arthropathy and ligamentum flavum thickening. Th is results in [id number] spinal canal stenosis with moderate to severe left and moderate right neural foraminal stenosis. At L5-S1, congenital spinal canal narrowing with hypertrophic facet arthropathy. This results in mild to moderate left neuroforaminal stenosis. IMPRESSION: 1. MILD TO MODERATE MULTILEVEL DEGENERATIVE DISC DISEASE. HYPERTROPHIC FACET ARTHROPATHY THROUGHOUT T HE LUMBAR SPINE. LIGAMENTUM FLAVUM THICKENING LOWER LUMBAR SPINE. 2. 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 3. DEGENERATIVE TRACE GRADE 1 ANTEROLISTHESIS L3-L4 AND L4-L5. 4. CHANGES RESULT IN OVERALL MODERATE SPINAL CANAL STENOSIS AT L3-L4 WITH MODERATE BILATERAL NEUROFOR AMINAL STENOSIS. 5. MILD OVERALL SPINAL CANAL STENOSIS AT L2-L3 AND MILD TO MODERATE AT L4-L5. 6. VARIABLE MODERATE NEUROFORAMINAL STENOSES OUTLINED ABOVE, MODERATE TO SEVERE ON THE LEFT AT L4- L5.
== END | disposition home or self-care (01) ==
LOC: RADCTMAIN 13:40
PROVIDERS: ATTEND Neurological Surgery
DX: M51.36 Other intervertebral disc degeneration, lumbar region (principal); M47.817 Spondylosis without myelopathy or radiculopathy, lumbosacral region; M48.061 Spinal stenosis, lumbar region without neurogenic claudication; M43.16 Spondylolisthesis, lumbar region; M99.74 Connective tissue and disc stenosis of intervertebral foramina of sacral region
CPT/HCPCS: 72114; 72131

== ENCOUNTER → 2022-09-12 | Outpatient (CLI) | payer MEDICARE, BC ==
--- NOTE | 2022-09-13 08:39 | MM ---
Reason for Exam: Screening (asymptomatic). Last screening mammogram was performed 12 month(s) ago. Patient History: Menarche at age 11. First Full-Term at age 21. Postmenopausal. Other cancer. Currently using Unspecified Hormone, beginning at age 53 for 8 years. Risk Values: Maki 5 year model risk: 1.7%. NCI Lifetime model risk: 3.5%. Prior Study Comparison: 06/10/2019 Bilateral Screening Mammogram, [facility]. 08/05/2020 Bilateral Screening Mammogram, [facility]. 08/30/2021 Bilateral Screening Mammogram, [facility]. Tissue Density: The breast tissue is heterogeneously dense. This may lower the sensitivity of mammography. Findings: Analyzed By CAD. There is no suspicious group of microcalcifications or new suspicious mass in either breast. Overall Assessment: Benign, BI-RAD 2 Management: Screening Mammogram of both breasts in 1 year. A clinical breast exam by your physician is recommended on an annual basis and results should be correlated with mammographic findings. Electronically signed and approved by: Lalo Tolbert M.D. Radiologis
== END | disposition home or self-care (01) ==
LOC: RADMAMWWP 10:54
PROVIDERS: ATTEND Family Medicine
DX: Z12.31 Encounter for screening mammogram for malignant neoplasm of breast (principal); Z78.0 Asymptomatic menopausal state
CPT/HCPCS: 77063; 77067

== ENCOUNTER → 2022-10-26 | Outpatient (CLI) | payer MEDICARE, BC ==
--- NOTE | 2022-10-26 16:48 | XR ---
EXAMINATION TYPE: XR chest 2V DATE OF EXAM: 10/26/2022 COMPARISON: Chest x-ray January 03, 2019 HISTORY: Presurgical study. Hypertension. TECHNIQUE: Frontal and lateral views of the chest are obtained. FINDINGS: There is mild chronic parenchymal change without suspicious focal air space opacity, pleur al effusion, or pneumothorax seen. The cardiac silhouette size is stable and within normal limits. M ultilevel spurring in thoracic spine is redemonstrated. IMPRESSION: Changes without acute pulmonary process. No significant change from prior.
== END | disposition home or self-care (01) ==
LOC: RADXRMAIN 14:00
PROVIDERS: ATTEND Family Medicine
DX: I10 Essential (primary) hypertension (principal)
CPT/HCPCS: 71046

== ENCOUNTER → 2023-04-23 | Outpatient (CLI) | payer MEDICARE, BC ==
--- NOTE | 2023-04-23 15:42 | XR ---
EXAMINATION TYPE: XR ankle complete LT DATE OF EXAM: 04/23/2023 COMPARISON: NONE HISTORY: Pain TECHNIQUE: 3 views of the left ankle are submitted for evaluation. FINDINGS: There is no evidence for fracture or dislocation. Ankle mortise is intact. Soft tissue swel ling noted both medially and laterally. IMPRESSION: 1. No evidence for acute fracture.
--- NOTE | 2023-04-23 15:42 | XR ---
EXAMINATION TYPE: XR foot complete LT DATE OF EXAM: 04/23/2023 CLINICAL HISTORY: pain TECHNIQUE: Frontal, lateral and oblique images of the left foot are obtained. COMPARISON: None. FINDINGS: There is no acute fracture/dislocation evident. The joint spaces appear moderately narrow ed. The overlying soft tissue appears unremarkable. IMPRESSION: There is no acute fracture or dislocation. ICD 10 NO FRACTURE, INITIAL EVALUATION
== END | disposition home or self-care (01) ==
LOC: RADXRMAIN 15:02
PROVIDERS: ATTEND Family Medicine
DX: M25.572 Pain in left ankle and joints of left foot (principal)

== ENCOUNTER → 2023-10-01 | Outpatient (CLI) | payer MEDICARE, BC ==
--- NOTE | 2023-10-01 18:51 | BD ---
EXAMINATION TYPE: Axial Bone Density DATE OF EXAM: 10/01/2023 CLINICAL HISTORY: 78 years old Female. ICD-10 CODE: Z78.0 ASYMPTOMATIC MENOPAUSAL Height: 60 Weight: 185 FRAX RISK QUESTIONS: Family History (Parent hip fracture): yes History of Fracture in Adulthood: no Secondary Osteoporosis: no RISK FACTORS HISTORY OF: Surgery to Spine/Wrist (right/left): yes When: spine nov 2022, bilat carpal tunnel Family History of Osteoporosis: yes Active: yes Diet low in dairy products/other sources of calcium: no Postmenopausal woman: yes Lost more than 2 inches in height since high school: no MEDICATIONS: Thyroid Medications: yes Which medication: Synthroid How Lon+ years Additional Medications: yes hbp meds, diabetic meds, cholesterol Additional History: yes thyroid ca with iodine treatment EXAM MEASUREMENTS: Bone mineral densitometry was performed using the [employer]. Bone mineral density about the R hip (g/cm2): 0.780 Bone mineral density about the L hip (g/cm2): 0.793 T Score values are as follows: -----R Neck: -2.3 -----L Neck: -1.7 -----R Total: -1.8 -----L Total: -1.7 Z Score values are as follows: -----R Neck: -0.7 -----L Neck: -0.1 -----R Total: -0.4 -----L Total: -0.3 Bone mineral density has: Increased 1.3% since study of: 08/30/2021 FRAX%s: The graph provided illustrates a 28.6% chance for a major osteoporotic fx and a 18.4% chance for the hips probability for fx in 10 years time. IMPRESSION: Osteopenia (T Score between -2.5 and -1). There is slightly increased risk of fracture and the patient may be considered for treatment. Re-Screen 2-5 years. NOTE: T-SCORE=SD OF THE YOUNG ADULT MEAN.
--- NOTE | 2023-10-03 08:39 | MM ---
Reason for Exam: Screening (asymptomatic). Last mammogram was performed 1 year(s) and 1 month(s) ago. Patient History: Menarche at age 11. First Full-Term at age 21. Postmenopausal. Other cancer. Currently using Unspecified Hormone, beginning at age 53 for 8 years. Risk Values: Maki 5 year model risk: 1.7%. NCI Lifetime model risk: 3.3%. Prior Study Comparison: 08/05/2020 Bilateral Screening Mammogram, [facility]. 08/30/2021 Bilateral Screening Mammogram, [facility]. 09/12/2022 Bilateral MG 3D screening mammo w/cad, [facility]. Tissue Density: The breast tissue is heterogeneously dense. This may lower the sensitivity of mammography. Findings: Analyzed By CAD. There is no suspicious group of microcalcifications or new suspicious mass in either breast. Overall Assessment: Benign, BI-RAD 2 Management: Screening Mammogram of both breasts in 1 year. . Patient should continue monthly self-breast exams. A clinical breast exam by your physician is recommended on an annual basis. This exam should not preclude additional follow-up of suspicious palpable abnormalities. Note on Maki scores and lifetime risk: 1. A Maki score greater than 3% is considered moderate risk. If this is the case, consider specialist referral to assess eligibility for a risk reducing agent. 2. If overall lifetime risk for the development of breast cancer is 20% or higher, the patient may qualify for future screening with alternating mammogram and breast MRI. Electronically signed and approved by: Lalo Tolbert M.D. Radiologis
== END | disposition home or self-care (01) ==
LOC: RADMAMWWP 14:13
PROVIDERS: ATTEND Family Medicine
DX: Z12.31 Encounter for screening mammogram for malignant neoplasm of breast (principal); M85.89 Other specified disorders of bone density and structure, multiple sites; Z78.0 Asymptomatic menopausal state
CPT/HCPCS: 77063; 77067; 77080

== ENCOUNTER → 2024-12-18 | Outpatient (CLI) | payer MEDICARE, BC ==
--- NOTE | 2024-12-18 15:40 | MM ---
Reason for Exam: Screening (asymptomatic). Last mammogram was performed 1 year(s) and 3 month(s) ago. Patient History: Menarche at age 11. First Full-Term at age 21. Postmenopausal. Other cancer. Currently using Unspecified Hormone, beginning at age 53 for 8 years. Risk Values: Maki 5 year model risk: 1.7%. NCI Lifetime model risk: 3.0%. Prior Study Comparison: 08/30/2021 Bilateral Screening Mammogram, [facility]. 09/12/2022 Bilateral MG 3D screening mammo w/cad, [facility]. 10/01/2023 Bilateral MG 3D screening mammo w/cad, [facility]. Tissue Density: The breasts are heterogeneously dense, which may obscure small masses. Findings: Analyzed By CAD. There is chronic bilateral nodularity. Asymmetric density central outer right cc view middle depth remains unchanged in appearance. There is no suspicious group of microcalcifications or new suspicious mass in either breast. Overall Assessment: Benign, BI-RAD 2 Management: Screening Mammogram of both breasts in 1 year. Patient should continue monthly self-breast exams. A clinical breast exam by your physician is recommended on an annual basis. This exam should not preclude additional follow-up of suspicious palpable abnormalities. Note on Maki scores and lifetime risk: 1. A Maki score greater than 3% is considered moderate risk. If this is the case, consider specialist referral to assess eligibility for a risk reducing agent. 2. If overall lifetime risk for the development of breast cancer is 20% or higher, the patient may qualify for future screening with alternating mammogram and breast MRI. [facility], , 12/18/2024 3:36 PM. Electronically signed and approved by: Todd Bowser M.D. Radiologist
== END | disposition home or self-care (01) ==
LOC: RADMAMWWP 12:59
PROVIDERS: ATTEND Family Medicine
DX: Z12.31 Encounter for screening mammogram for malignant neoplasm of breast (principal); R92.333 Mammographic heterogeneous density, bilateral breasts; Z78.0 Asymptomatic menopausal state
CPT/HCPCS: 77063; 77067